=== PATIENT | male | born 1970 | race Caucasian/White ===

== ENCOUNTER → 2020-01-12 10:34 | Outpatient (BNVA) | payer MEDICARE, MEDICAID, SELFPAY | PROVIDERS: PCP Physician Assistant; Referring Provider Physician Assistant; Visit Provider Nurse Practitioner Gerontology | DX: E11.65 Type 2 diabetes mellitus with hyperglycemia (principal); Z79.84 Long term (current) use of oral hypoglycemic drugs; E78.5 Hyperlipidemia, unspecified; I10 Essential (primary) hypertension | CPT/HCPCS: 82947; 99214 ==

== ENCOUNTER 2020-01-20 08:51 | Day surgery (SDC) | payer MEDICARE, MEDICAID, SELFPAY ==
[2020-01-17 13:07] VITALS: BMI 25.8
--- NOTE | 2020-01-19 12:06 | HO.ANESPROP2 ---
HPI - Anesthesia Eval Consult details Narrative: 49yo M for Colonoscopy: screening [facility] Past Medical History Medical History Anemia, iron deficiency Bleeding ulcer Chronic headache Controlled diabetes mellitus with hyperglycemia Depression Elevated cholesterol History of blood transfusion HTN (hypertension) Hx of appendicitis Hyperlipidemia LDL goal <100 Liver problem Pyloric channel ulcer RLS (restless legs syndrome) Upper GI bleed Family History Family History Father No problems noted. Mother Anxiety associated with depression CVD (cardiovascular disease) Surgical History Surgical History History of appendectomy History of esophagogastroduodenoscopy (EGD) Hx of cholecystectomy Hx of esophagogastroduodenoscopy Social History Social History Smoking Status: Never smoker Use of substances other than those prescribed or required for medical reasons: No Advance Directives Information Provided: No Recently lost weight without trying: No Meds Allergies Allergy/AdvReac Type Severity Reaction Status Date / Time Penicillins [PENICILLINS] Allergy Intermediate RASH Verified 01/17/20 13:14 Home Medications Medication Instructions Recorded Confirmed Type lancets 28 gauge #100 ea 01/12/20 01/12/20 History dulaglutide [Trulicity] 1.5 mg SUBCUT QWEEK 01/17/20 01/17/20 History empagliflozin [Jardiance] 1 tab PO DAILY 01/17/20 01/17/20 History gabapentin 2 cap PO BID 01/17/20 01/17/20 History lisinopril 1 tab PO DAILY 01/17/20 01/17/20 History metformin 1 tab PO BID 01/17/20 01/17/20 History pentoxifylline 1 tab PO BID 01/17/20 01/17/20 History quetiapine 1 tab PO BID 01/17/20 01/17/20 History sertraline [Zoloft] 150 mg PO DAILY 01/17/20 01/17/20 History simvastatin 1 tab PO BEDTIME 01/17/20 01/17/20 History zolpidem 1 tab PO BEDTIME PRN 01/17/20 01/17/20 History Exam Exam Date and Time: January 19, 2020 1206 Height,Weight and Vital Signs: Height 5 ft 6 in Weight 72.575 kg Pertinent Lab Results Pertinent Lab Results: Laboratory Tests 10/25/19 10/25/19 10:30 10:30 WBC 6.1 Hgb 14.6 Hct 42.5 Plt Count 167 Sodium 140 Potassium 4.5 Chloride 104 BUN 13 Creatinine 1.01 Assessment and Plan Assessment Anesthesia Assessment: Chart Reviewed
[2020-01-20 09:06] VITALS: BP 108/79; PULSE 99; RESP 18; TEMP 35.7; O2SAT 96
--- NOTE | 2020-01-20 09:08 | MHC.SHP ---
Pre-Procedural Eval Section B Chief Complaint: Screening Relevant Family History (Specify if Yes): No Relevant Social History: None Present Medications: see Short Stay Collaborative assessment Medical History: Significant History ([place], HLP, HTN, DM, ) History of Previous Operations: No relevant previous surgery Allergies: Allergies Allergy/AdvReac Type Severity Reaction Status Date / Time Penicillins [PENICILLINS] Allergy Intermediate RASH Verified 01/17/20 13:14 Review of Systems Sugical H&P ROS: Negative: Constitution, Cardiovascular, Respiratory, Neurological, Psychiatric, Hem-Onc, Allergic/Immunologic, Gastrointestinal, Genitourinary, Musculoskeletal, Integumentary, Endocrine and Eyes/Ears/Nose/Throat Exam Surgical H&P Exam: Normal: HEENT, Normal: Heart, Normal: Lungs, Normal: Extremities, Normal: Abdomen, Normal: Skin and Normal: Neurological Plan Diagnosis/Plan: Unchanged Patient has been examined and remains a candidate for the planned procedure
--- NOTE | 2020-01-20 09:09 | PM.OP ---
Brief Operative Note Date of procedure: 01/20/20 Pre-op diagnosis: colon screen Post-op diagnosis: same Procedure: see op note--colonoscopy Surgeon: Nato Landrum MD Anesthesia: MAC Estimated blood loss (mL): 0 Condition: stable Disposition: PACU
--- NOTE | 2020-01-20 09:09 | W.PM.OPN ---
Operative Note Operative Note Narrative: Operative Information Procedure Description: Colonoscopy COLONOSCOPY Instrument: Olympus variable stiffness pediatric scope 190L Colonoscopy Monitoring: Vital signs and clinical assessment, continuous EKG monitoring, Pulse oximetry, Carbon Dioxide monitoring and blood pressure monitoring were done throughout the procedure. Colon withdrawal time was 11 minutes. Procedure: The patient was placed in the left lateral decubitis position and pre-procedure medications were administered. After a digital rectal examination of the ano-rectum, the video colonoscope was inserted into the rectum and advanced through the colon to the cecum/TI. The colonoscope was slowly withdrawn in a retrograde panoramic fashion and the colon mucosa was carefully examined including a retroflexed view of the rectum. Findings and interventions are described below. Procedure Difficulty: difficult due to tortuous colon Findings: Terminal Ileum-normal Cecum:normal Ascending Colon: normal Transverse Colon -normal Descending Colon:normal Sigmoid Colon: normal Rectum: Retroflexion with moderate sized internal hemorrhoids, grade I Anorectum - normal Colon preparation: [place] Bowel Preparation Scale Right colon; 3 Transverse colon: 3 Left colon; 1 (0 = Unprepared colon segment with mucosa not seen due to solid stool that cannot be cleared. 1 = Portion of mucosa of the colon segment seen, but other areas of the colon segment not well seen due to staining, residual stool and/or opaque liquid. 2 = Minor amount of residual staining, small fragments of stool and/or opaque liquid, but mucosa of colon segment seen well. 3 = Entire mucosa of colon segment seen well with no residual staining, small fragments of stool or opaque liquid) Impression and Post Procedure Diagnosis: internal hemorrhoids Plan: High fiber diet leaflet Avoid straining at stool, epsom salts and sitz bath, anusol supps or cream Repeat Colonoscopy in 5 years due to prep or earlier if clinically indicated Above findings were reviewed with the patient and relevant handouts were provided if indicated.
[2020-01-20 09:12] LABS: Glucose, Whole Blood 97 mg/dL (60-115)
[2020-01-20] MEDS: Lactated Ringers 1,000 ML 100 ML IVCONT (09:20)
[2020-01-20 10:47] VITALS: BP 103/71; PULSE 95; RESP 19; TEMP 36.6; O2SAT 95
[2020-01-20 11:02] VITALS: BP 109/68; PULSE 88; RESP 18; TEMP 36.6; O2SAT 95
[2020-01-20] MEDS: Acetaminophen 325 MG TABLET 650 MG PO (11:10)
[2020-01-20] MEDS: Erythromycin Base 0.5% Oph Oin 1 GM TUBE 1 CM EYE-LEFT ×2 (11:21→11:38)
--- NOTE | 2020-01-20 12:09 | HO.POSTANES ---
Post Anesthesia Evaluation Post Anesthesia Evaluation Vital Signs: Vital Signs Temp Pulse Resp BP Pulse Ox 01/20/20 11:02 97.9 F 88 18 109/68 95 01/20/20 10:47 97.9 F 95 19 103/71 95 01/20/20 09:06 96.2 F L 99 18 108/79 96 Anesthesia: Monitored Mental Status: Awake Pain Control: Satisfactory Nausea/Vomiting: None Hydration: Adequate Anesthesia-Related Issues: No Anes. Related Issues
== END 2020-01-20 12:30 | disposition home or self-care (01) ==
PROVIDERS: Internal Medicine Gastroenterology; PCP Physician Assistant; Visit Provider Anesthesiology
PROC: 0DJD8ZZ Inspection of Lower Intestinal Tract, Via Natural or Artificial Opening Endoscopic (ICD-10-PCS; CPT 45378; principal; 2020-01-20 09:50)
DX: Z12.11 Encounter for screening for malignant neoplasm of colon (principal); K64.0 First degree hemorrhoids; D50.9 Iron deficiency anemia, unspecified; I10 Essential (primary) hypertension; E11.65 Type 2 diabetes mellitus with hyperglycemia; E78.5 Hyperlipidemia, unspecified; K75.81 Nonalcoholic steatohepatitis (NASH); Z79.84 Long term (current) use of oral hypoglycemic drugs; Z79.899 Other long term (current) drug therapy; Z87.11 Personal history of peptic ulcer disease; Z90.49 Acquired absence of other specified parts of digestive tract; Z88.0 Allergy status to penicillin
CPT/HCPCS: G0121; 82947

== ENCOUNTER → 2020-01-25 09:56 | Outpatient (BNVA) | payer MEDICARE, MEDICAID, SELFPAY | PROVIDERS: PCP Physician Assistant; Referring Provider Physician Assistant; Visit Provider Dietitian, Registered | DX: Z76.89 Persons encountering health services in other specified circumstances (principal) ==

== ENCOUNTER → 2020-02-08 09:08 | Outpatient (BNVA) | payer MEDICARE, MEDICAID, SELFPAY | PROVIDERS: PCP Physician Assistant; Referring Provider Physician Assistant; Visit Provider Internal Medicine Gastroenterology | DX: K75.81 Nonalcoholic steatohepatitis (NASH) (principal) | CPT/HCPCS: 99211 ==

== ENCOUNTER 2020-02-11 11:12 | Emergency (ER) | payer MEDICARE, MEDICAID, SELFPAY ==
[2020-02-11 11:51] VITALS: BP 120/80; PULSE 97; RESP 16; TEMP 36.2; O2SAT 97; BMI 24.2
--- NOTE | 2020-02-11 12:14 | XR_ITS ---
EXAMINATION: XR HAND/WRIST, RIGHT CLINICAL INFORMATION: Injury COMPARISON: None TECHNIQUE: Four views of the right hand/wrist FINDINGS: No fracture or dislocation. Alignment is anatomic. Joint spaces are maintained. The carpal rows are well aligned. The soft tissues are unremarkable. XR/XR hand wrist RT IMPRESSION: No fracture or malalignment.
--- NOTE | 2020-02-11 12:15 | ED.EXTPRO ---
HPI - Extremity Problem General Chief complaint: Extremity Injury, Upper Stated complaint: R HAND INJ Time Seen by Provider: 02/11/20 12:14 History of Present Illness HPI Narrative: Patient complains of injury to the right hand after he ate his desk and now right hand and right wrist hurt There is no laceration, there is no numbness or weakness, there is no other injury This happened 2 hours ago and pain is mild Related Data Home Medications Medication Instructions Recorded Confirmed lancets 28 gauge #100 ea 01/12/20 01/12/20 dulaglutide [Trulicity] 1.5 mg SUBCUT QWEEK 01/17/20 01/17/20 empagliflozin [Jardiance] 1 tab PO DAILY 01/17/20 01/17/20 gabapentin 2 cap PO BID 01/17/20 01/17/20 lisinopril 1 tab PO DAILY 01/17/20 01/17/20 metformin 1 tab PO BID 01/17/20 01/17/20 pentoxifylline 1 tab PO BID 01/17/20 01/17/20 quetiapine 1 tab PO BID 01/17/20 01/17/20 sertraline [Zoloft] 150 mg PO DAILY 01/17/20 01/17/20 simvastatin 1 tab PO BEDTIME 01/17/20 01/17/20 zolpidem 1 tab PO BEDTIME PRN 01/17/20 01/17/20 Previous Rx's Medication Instructions Recorded blood sugar diagnostic #150 ea 01/05/20 Allergies Allergy/AdvReac Type Severity Reaction Status Date / Time Penicillins [PENICILLINS] Allergy Intermediate RASH Verified 01/17/20 13:14 Review of Systems Review of Systems: No numbness weakness or paresthesias, no laceration no dizziness no weakness, no other injury Yes all other systems are reviewed and are negative PMFSH Past Medical History Source: nursing notes reviewed Medical History Anemia, iron deficiency Bleeding ulcer Chronic headache Controlled diabetes mellitus with hyperglycemia Depression Elevated cholesterol History of blood transfusion HTN (hypertension) Hx of appendicitis Hyperlipidemia LDL goal <100 Liver problem Pyloric channel ulcer RLS (restless legs syndrome) Upper GI bleed Surgical History History of appendectomy History of esophagogastroduodenoscopy (EGD) Hx of cholecystectomy Hx of esophagogastroduodenoscopy Family History Family History Father No problems noted. Mother Anxiety associated with depression CVD (cardiovascular disease) Social History Social History Smoking Status: Never smoker Advance Directives: No Advance Directives Information Provided: Yes Physical Exam Vital Signs: Vital Signs: Last Vital Signs Temp 97.2 F 02/11/20 11:51 Pulse 97 02/11/20 11:51 Resp 16 02/11/20 11:51 BP 120/80 02/11/20 11:51 Pulse Ox 97 02/11/20 11:51 Body Mass Index 24.2 General appearance is comfortable no acute distress A&O x3 Normocephalic atraumatic Neck is supple Respiratory no distress Right hand and wrist exam there is some mild bruising and superficial abrasions over the knuckles of the right hand and there is mild ulnar tenderness of the wrist, there is full range of motion in the wrist and fingers the patient can make a fist and flex and extend at the wrist, there is no swelling at the wrist, there is no laceration, all tendon function is normal on flexion and extension and neurovascular is intact Neuro no focal deficit Course Course Course Narrative: X-ray of right hand and wrist did not reveal any broken bones or acute pathology, patient has full range of motion and is comfortable so was not splinted and he is discharged to follow-up as needed Discharge Plan Discharge Clinical Impression: Contusion of hand, right Qualifiers: Encounter type: initial encounter Qualified Code(s): S60.221A - Contusion of right hand, initial encounter Patient Disposition: Home, Self-Care Additional Instructions: X-RAY WAS NORMAL, NO BROKEN BONE USUALLY VERY IMPROVED IN 2-3 DAYS IF NOT IMPROVING FOLLOW WITH ORTHOPEDIST RETURN ANY CONCERNS DC BY PROVIDER Prescriptions: No Action (DME) FreeStyle Lite Strips Strip See Rx Instructions .ROUTE .MEDSUPPLY Qty: 150 RF: 3 gabapentin 600 mg tablet 2 cap PO BID RF: 0 sertraline [Zoloft] 100 mg Tablet 150 mg PO DAILY RF: 0 quetiapine 200 mg tablet 1 tab PO BID RF: 0 pentoxifylline 400 mg tablet extended release 1 tab PO BID RF: 0 simvastatin 20 mg tablet 1 tab PO BEDTIME RF: 0 metformin 1,000 mg tablet 1 tab PO BID RF: 0 lisinopril 5 mg tablet 1 tab PO DAILY RF: 0 zolpidem 10 mg tablet 1 tab PO BEDTIME PRN (Reason: insomnia) RF: 0 Jardiance 10 mg tablet 1 tab PO DAILY RF: 0 Trulicity 1.5 mg/0.5 mL Pen Injector 1.5 mg SUBCUT QWEEK RF: 0 (DME) lancets 28 gauge misc See Rx Instructions ea topical BID Qty: 100 RF: 0 Referrals: Jd Yun MD [Physician] - 2 days (Right hand injury) Discharge Date/Time: 02/11/20 13:09
--- NOTE | 2020-02-11 12:15 | ED.EXTPRO ---
HPI - Extremity Problem General Chief complaint: Extremity Injury, Upper Stated complaint: R HAND INJ Time Seen by Provider: 02/11/20 12:14 History of Present Illness HPI Narrative: Patient complains of right hand and wrist pain after hitting his desk, no other injury, no laceration no numbness no weakness no paresthesias no other injury This happened a few hours ago and the pain is mild Related Data Home Medications Medication Instructions Recorded Confirmed lancets 28 gauge #100 ea 01/12/20 01/12/20 dulaglutide [Trulicity] 1.5 mg SUBCUT QWEEK 01/17/20 01/17/20 empagliflozin [Jardiance] 1 tab PO DAILY 01/17/20 01/17/20 gabapentin 2 cap PO BID 01/17/20 01/17/20 lisinopril 1 tab PO DAILY 01/17/20 01/17/20 metformin 1 tab PO BID 01/17/20 01/17/20 pentoxifylline 1 tab PO BID 01/17/20 01/17/20 quetiapine 1 tab PO BID 01/17/20 01/17/20 sertraline [Zoloft] 150 mg PO DAILY 01/17/20 01/17/20 simvastatin 1 tab PO BEDTIME 01/17/20 01/17/20 zolpidem 1 tab PO BEDTIME PRN 01/17/20 01/17/20 Previous Rx's Medication Instructions Recorded blood sugar diagnostic #150 ea 01/05/20 Allergies Allergy/AdvReac Type Severity Reaction Status Date / Time Penicillins [PENICILLINS] Allergy Intermediate RASH Verified 02/14/20 11:20 Review of Systems Review of Systems: No head pain, no neck pain, no numbness no weakness no paresthesias no laceration Yes all other systems are reviewed and are negative PMFSH Past Medical History Source: nursing notes reviewed Medical History Anemia, iron deficiency Bleeding ulcer Chronic headache Controlled diabetes mellitus with hyperglycemia Depression Elevated cholesterol History of blood transfusion HTN (hypertension) Hx of appendicitis Hyperlipidemia LDL goal <100 Liver problem Pyloric channel ulcer RLS (restless legs syndrome) Upper GI bleed Surgical History History of appendectomy History of esophagogastroduodenoscopy (EGD) Hx of cholecystectomy Hx of esophagogastroduodenoscopy Family History Family History Father No problems noted. Mother Anxiety associated with depression CVD (cardiovascular disease) Social History Social History Smoking Status: Never smoker Physical Exam Vital Signs: Vital Signs: Last Vital Signs Temp 97.2 F 02/11/20 11:51 Pulse 97 02/11/20 11:51 Resp 16 02/11/20 11:51 BP 120/80 02/11/20 11:51 Pulse Ox 97 02/11/20 11:51 Body Mass Index 24.2 Head is Normocephalic atraumatic General appearance no acute distress comfortable relaxed cooperative A&O x3 Neck is supple No respiratory distress The right hand has small abrasions over the 2nd and 3rd knuckles there is minor swelling over the dorsum of the hand minor ecchymosis there is full range of motion in the fingers, all fingers and in the wrist, there is no tendon deficit there is no motor or sensory deficit, neurovascular is intact Skin no rashes Course Course Course Narrative: X-ray was done in radiology report was negative for fracture, patient is comfortable and is discharged Discharge Plan Discharge Clinical Impression: Contusion of hand, right Patient Disposition: Home, Self-Care Additional Instructions: X-RAY WAS NORMAL, NO BROKEN BONE USUALLY VERY IMPROVED IN 2-3 DAYS IF NOT IMPROVING FOLLOW WITH ORTHOPEDIST RETURN ANY CONCERNS DC BY PROVIDER Prescriptions: No Action (DME) FreeStyle Lite Strips Strip See Rx Instructions .ROUTE .MEDSUPPLY Qty: 150 RF: 3 gabapentin 600 mg tablet 2 cap PO BID RF: 0 sertraline [Zoloft] 100 mg Tablet 150 mg PO DAILY RF: 0 quetiapine 200 mg tablet 1 tab PO BID RF: 0 pentoxifylline 400 mg tablet extended release 1 tab PO BID RF: 0 simvastatin 20 mg tablet 1 tab PO BEDTIME RF: 0 metformin 1,000 mg tablet 1 tab PO BID RF: 0 lisinopril 5 mg tablet 1 tab PO DAILY RF: 0 zolpidem 10 mg tablet 1 tab PO BEDTIME PRN (Reason: insomnia) RF: 0 Jardiance 10 mg tablet 1 tab PO DAILY RF: 0 Trulicity 1.5 mg/0.5 mL Pen Injector 1.5 mg SUBCUT QWEEK RF: 0 (DME) lancets 28 gauge misc See Rx Instructions ea topical BID Qty: 100 RF: 0 Referrals: Jd Yun MD [Physician] - 2 days (Right hand injury) Discharge Date/Time: 02/11/20 13:09
== END 2020-02-11 13:09 | disposition home or self-care (01) ==
PROVIDERS: Emergency Provider Emergency Medicine; PCP Physician Assistant
DX: S60.221A Contusion of right hand, initial encounter (principal); M79.641 Pain in right hand; I10 Essential (primary) hypertension; X58.XXXA Exposure to other specified factors, initial encounter; Y93.9 Activity, unspecified; Y92.9 Unspecified place or not applicable; Y99.9 Unspecified external cause status; Z79.899 Other long term (current) drug therapy
CPT/HCPCS: 73110; 73130; 99282; 99283

== ENCOUNTER 2020-02-28 12:19 | Outpatient (REF) | payer MEDICARE, MEDICAID, SELFPAY ==
--- NOTE | 2020-02-28 12:27 | US_ITS ---
EXAMINATION: US ABDOMEN LIMITED CLINICAL INFORMATION: Nonalcoholic steatohepatitis. CORTES. COMPARISON: None TECHNIQUE: Real-time imaging of the right upper quadrant abdominal viscera. FINDINGS: PANCREAS: Normal. LIVER: There is anechoic left hepatic cyst measuring 1.5 x 1.4 x 1.2 cm. The liver is normal in size. The liver contour is normal. Parenchymal echogenicity is increased. No focal hepatic lesion. There is no intrahepatic biliary duct dilatation seen. GALLBLADDER: Normal. The gallbladder is physiologically distended without evidence of stones, sludge, polyps, wall thickening or pericholecystic fluid. COMMON BILE DUCT: Normal in caliber measuring 0.4 cm in diameter. RIGHT KIDNEY: Normal. No hydronephrosis. No renal calculi or focal parenchymal lesions. The kidney measures 10.0 cm in maximum dimension. FREE FLUID: None. US/US abdomen limited IMPRESSION: Diffuse hepatic steatosis with a small left hepatic cyst. Visualized right kidney, CBD, pancreas and gallbladder appears unremarkable.
== END 2020-02-28 12:20 | disposition home or self-care (01) ==
LOC: HO.US 12:19
PROVIDERS: PCP Physician Assistant; Visit Provider Internal Medicine Gastroenterology
DX: K75.81 Nonalcoholic steatohepatitis (NASH) (principal)
CPT/HCPCS: 76705

== ENCOUNTER → 2020-04-26 10:00 | Outpatient (BNVA) | payer MEDICARE, MEDICAID, SELFPAY | PROVIDERS: PCP Physician Assistant; Visit Provider Dietitian, Registered | DX: Z76.89 Persons encountering health services in other specified circumstances (principal) ==

== ENCOUNTER → 2020-05-01 09:28 | Outpatient (BNVA) | payer MEDICARE, MEDICAID, SELFPAY | PROVIDERS: PCP Physician Assistant; Visit Provider Internal Medicine Gastroenterology | DX: Z13.89 Encounter for screening for other disorder (principal) | CPT/HCPCS: Q3014 ==

== ENCOUNTER 2020-07-25 12:52 | Outpatient (REF) | payer MEDICARE, MEDICAID, SELFPAY ==
[2020-07-25 14:25] LABS: Estimated Average Glucose 117 mg/dL; Hemoglobin A1c % 5.7 %
[2020-07-25 14:33] LABS: Alanine Aminotransferase 20 U/L (0-40); Albumin Level 4.9 g/dL (3.5-5.0); Alkaline Phosphatase 69 U/L (39-117); Anion Gap 15 (12-20); Aspartate Amino Transferase 20 U/L (5-37); Bilirubin Total 0.7 mg/dL (0.0-1.0); Blood Urea Nitrogen 12 mg/dL (9-16); Calcium 9.9 mg/dL (8.4-10.2); Carbon Dioxide 28 mmol/L (22-29); Chloride 103 mmol/L (96-108); Cholesterol 210 mg/dL; Estimated Glomerular Filt Rate > 60; Glucose Fasting 134 mg/dL (60-99); HDL Cholesterol 47 mg/dL; LDL Cholesterol Calculated 147 mg/dl; Potassium 4.5 mmol/L (3.3-5.1); Sodium 141 mmol/L (135-145); Total Protein 7.4 g/dL (6.5-8.0); Triglycerides 81 mg/dL
[2020-07-25 14:57] LABS: Creatinine Urine 64.66 mg/dL; Microalbumin Urine < 5.0 mg/L
[2020-07-26 06:26] LABS: LDL Cholesterol Direct 151 mg/dL (<100)
== END 2020-07-25 12:53 | disposition home or self-care (01) ==
LOC: HO.LAB 12:52
PROVIDERS: PCP Physician Assistant; Visit Provider Nurse Practitioner Gerontology
DX: E11.65 Type 2 diabetes mellitus with hyperglycemia (principal)
CPT/HCPCS: 36415; 80053; 80061; 82043; 83036; 83721

== ENCOUNTER → 2020-07-26 10:02 | Outpatient (BNVA) | payer MEDICARE, MEDICAID, SELFPAY | PROVIDERS: PCP Physician Assistant; Visit Provider Nurse Practitioner Gerontology | DX: Z13.89 Encounter for screening for other disorder (principal) | CPT/HCPCS: Q3014 ==

== ENCOUNTER 2020-08-15 09:50 | Outpatient (REF) | payer MEDICARE, MEDICAID, SELFPAY ==
[2020-08-15 10:44] LABS: MANUAL DIFF FLAG NO
[2020-08-15 10:50] LABS: Basophils Absolute Auto 0.1 X10*3/uL (0.0-0.2); Eosinophils Absolute Auto 0.2 X10*3/uL (0.0-0.4); Eosinophils Percent Auto 4.4 % (0-4); Hematocrit 43.8 % (42-52); Imm Gran Abs Auto 0.01 X10*3/uL (0.00-0.03); Imm Gran Pct Auto 0.2 % (0.0-0.4); Lymphocytes Absolute Auto 1.5 X10*3/uL (1.2-4.9); Lymphocytes Percent Auto 28.3 % (20-40); Mean Corpuscular HGB Conc 34.2 g/dl (31.0-36.0); Mean Corpuscular Volume 84.7 fL (80-98); Mean Platelet Volume 10.7 fL (9.4-12.4); Monocytes Absolute Auto 0.6 X10*3/uL (0.1-1.2); Monocytes Percent Auto 10.5 % (2-11); Neutrophils Absolute Auto 2.9 X10*3/uL (2.0-8.3); Neutrophils Percent Auto 55.6 % (45-73); Platelet Count 174 X10*3/uL (160-400); Red Blood Count 5.17 X10*6/uL (4.60-5.80); Red Cell Distribution Width 12.8 % (11.0-16.0); White Blood Count 5.2 X10*3/uL (4.8-10.8)
[2020-08-15 10:55] LABS: INTERNATIONAL NORM RATIO 1.1 (0.9-1.1); Prothrombin Time 12.8 SEC (10.8-13.0)
[2020-08-15 11:26] LABS: Alanine Aminotransferase 37 U/L (0-40); Albumin Level 4.5 g/dL (3.5-5.0); Alkaline Phosphatase 60 U/L (39-117); Anion Gap 13 (12-20); Aspartate Amino Transferase 30 U/L (5-37); Blood Urea Nitrogen 15 mg/dL (9-16); Calcium 9.7 mg/dL (8.4-10.2); Carbon Dioxide 28 mmol/L (22-29); Chloride 104 mmol/L (96-108); Estimated Glomerular Filt Rate > 60; Glucose Random 160 mg/dL (60-115); Potassium 4.8 mmol/L (3.3-5.1); Sodium 140 mmol/L (135-145)
[2020-08-15 11:41] LABS: Prostate Specific Antigen Scr 0.32 ng/mL (<0.05-4.0)
== END 2020-08-15 09:51 | disposition home or self-care (01) ==
LOC: HO.LAB 09:50
PROVIDERS: PCP Physician Assistant; Visit Provider Internal Medicine Gastroenterology
DX: Z12.5 Encounter for screening for malignant neoplasm of prostate (principal); E88.81 Metabolic syndrome and other insulin resistance; K75.81 Nonalcoholic steatohepatitis (NASH)
CPT/HCPCS: 36415; 80053; 84153; 85025; 85610

== ENCOUNTER → 2020-08-18 09:51 | Outpatient (BNVA) | payer MEDICARE, MEDICAID, SELFPAY | PROVIDERS: PCP Physician Assistant; Visit Provider Internal Medicine Gastroenterology | CPT/HCPCS: Q3014 ==

== ENCOUNTER → 2020-10-25 09:56 | Outpatient (BNVA) | payer MEDICARE, MEDICAID, SELFPAY | PROVIDERS: PCP Physician Assistant; Visit Provider Dietitian, Registered | DX: E11.9 Type 2 diabetes mellitus without complications (principal) | CPT/HCPCS: 97803 ==

== ENCOUNTER → 2020-10-26 09:32 | Outpatient (BNVA) | payer MEDICARE, MEDICAID, SELFPAY | PROVIDERS: PCP Physician Assistant; Visit Provider Nurse Practitioner Gerontology | CPT/HCPCS: Q3014 ==

== ENCOUNTER 2020-10-31 14:17 | Outpatient (REF) | payer MEDICARE, MEDICAID, SELFPAY ==
[2020-10-31 15:09] LABS: Estimated Average Glucose 143 mg/dL; Hemoglobin A1c % 6.6 %
== END 2020-10-31 14:18 | disposition home or self-care (01) ==
LOC: HO.LAB 14:17
PROVIDERS: PCP Physician Assistant; Visit Provider Nurse Practitioner Gerontology
DX: E11.9 Type 2 diabetes mellitus without complications (principal)
CPT/HCPCS: 36415; 83036

== ENCOUNTER → 2020-12-25 08:48 | Outpatient (BNVA) | payer MEDICARE, MEDICAID, SELFPAY | PROVIDERS: PCP Physician Assistant; Visit Provider Internal Medicine Gastroenterology | DX: E88.81 Metabolic syndrome and other insulin resistance (principal); K75.81 Nonalcoholic steatohepatitis (NASH) | CPT/HCPCS: Q3014 ==

== ENCOUNTER 2021-01-23 09:19 | Outpatient (REF) | payer MEDICARE, MEDICAID, SELFPAY ==
--- NOTE | ~2021-01-23 | US_ITS ---
EXAMINATION: US ABDOMEN LIMITED WITH LIVER ELASTOGRAPHY CLINICAL INFORMATION: Metabolic syndrome, CORTES COMPARISON: February 28, 2020 and October 13, 2019 TECHNIQUE: Real-time imaging of the abdominal viscera. Noninvasive ultrasound liver fibrosis assessment is performed using Marylin ElastPQ point quantification shear wave elastography (pSWE) with a C5-2 MHz transducer. Multiple elastography samples are obtained. FINDINGS: PANCREAS: Normal. The visualized pancreatic head and body are normal in appearance. The remainder of the pancreas is obscured from visualization by the overlying bowel gas. LIVER: There is diffuse increased echogenicity seen within the liver. The previously seen cyst within the left lobe of the liver is not as well seen on prior study and appears to measure 8 mm in largest dimension. The right lobe measures 15.1 cm in length. The left lobe measures 9.5 cm in length. Portal flow is hepatopedal Shear wave liver elastography median stiffness is 1.49 m/s (reference: normal median stiffness is 1.3 m/s or less). IQR/median stiffness to assess sampling precision is 0.8 (reference: good quality data set is IQR/median stiffness of 0.15 or less). GALLBLADDER: There is a stone or 1 mm cholesterol polyps present. Wall is not thickened. No pericholecystic fluid is seen. COMMON BILE DUCT: Normal in caliber measuring 0.4 cm in diameter. RIGHT KIDNEY: Normal. No hydronephrosis. No renal calculi or focal parenchymal lesions. The kidney measures 12.1 cm in maximum dimension. FREE FLUID: None. US/US abdomen farah w elastography IMPRESSION: 1. Cholelithiasis versus 1 mm cholesterol polyp within the gallbladder. No evidence of acute cholecystitis. Diffuse increased echogenicity of the liver which may be related to fatty infiltration or hepatocellular disease of other etiology. 2. Liver elastography: Although measurements appear to rule out compensated advanced chronic liver disease, there is statistical variability of the sampling which decreases accuracy. REFERENCE: Society of Radiologists in Ultrasound Liver Stiffness Thresholds (2020): LIVER STIFFNESS THRESHOLDS: *Liver Stiffness equal or less than 1.3 m/s: High probability of being normal. *Liver Stiffness less than 1.7 m/s: In the absence of other known clinical signs, rules out compensated advanced chronic liver disease. *Liver Stiffness 1.7-2.1 m/s: Suggestive of compensated advanced chronic liver disease but need further test for confirmation. *Liver Stiffness over 2.1 m/s: Rules in compensated advanced chronic liver disease. *Liver Stiffness over 2.4 m/s: Suggestive of clinically significant portal hypertension. QUALITY OF DATA SET: *IQR/Median value equal or less than 0.15 implies a quality data set. *IQR/Median value over 0.15 implies a poor quality data set. SIGNIFICANT CHANGE FROM PRIOR EXAM: Significant change if liver stiffness measurement is 10% or greater from prior exam. OTHER CONSIDERATIONS: The stage of liver fibrosis may be overestimated in the setting of acute hepatitis, liver inflammation, elevated liver function tests, hepatic vascular congestion, obstructive cholestasis, non-fasting state, and infiltrative diseases such as amyloidosis and lymphoma. In some patients with NAFLD, the liver stiffness thresholds for compensated advanced chronic liver disease may be lower. In causes other than viral hepatitis and NAFLD, liver stiffness thresholds are not well established.
== END 2021-01-23 09:20 | disposition home or self-care (01) ==
LOC: HO.US 09:19
PROVIDERS: PCP Physician Assistant; Visit Provider Internal Medicine Gastroenterology
DX: E88.81 Metabolic syndrome and other insulin resistance (principal); K75.81 Nonalcoholic steatohepatitis (NASH)
CPT/HCPCS: 76705; 76981

== ENCOUNTER → 2021-03-13 09:52 | Outpatient (BNVA) | payer MEDICARE, MEDICAID, SELFPAY | PROVIDERS: PCP Physician Assistant; Visit Provider Nurse Practitioner Gerontology | DX: E11.9 Type 2 diabetes mellitus without complications (principal); E78.5 Hyperlipidemia, unspecified; I10 Essential (primary) hypertension | CPT/HCPCS: 82947; 83036; 99212 ==

== ENCOUNTER → 2021-04-25 10:00 | Outpatient (BNVA) | payer MEDICARE, MEDICAID, SELFPAY | PROVIDERS: PCP Physician Assistant; Visit Provider Dietitian, Registered | DX: E11.9 Type 2 diabetes mellitus without complications (principal) | CPT/HCPCS: 97803 ==

== ENCOUNTER 2021-06-14 12:40 | Outpatient (REF) | payer MEDICARE, MEDICAID, SELFPAY ==
[2021-06-14 12:58] LABS: MANUAL DIFF FLAG NO
[2021-06-14 13:40] LABS: INTERNATIONAL NORM RATIO 1.2 (0.9-1.1); Prothrombin Time 13.8 SEC (9.9-13.0)
[2021-06-14 13:42] LABS: Basophils Absolute Auto 0.1 X10*3/uL (0.0-0.2); Eosinophils Absolute Auto 0.2 X10*3/uL (0.0-0.4); Eosinophils Percent Auto 3.2 % (0-4); Hematocrit 43.5 % (42.0-52.0); Hemoglobin 15.1 g/dl (14.0-18.0); Imm Gran Abs Auto 0.02 X10*3/uL (0.00-0.03); Imm Gran Pct Auto 0.4 % (0.0-0.4); Lymphocytes Absolute Auto 1.5 X10*3/uL (1.2-4.9); Lymphocytes Percent Auto 30.9 % (20-40); Mean Corpuscular HGB Conc 34.7 g/dl (31.0-36.0); Mean Corpuscular Hemoglobin 29.4 pg (27.0-33.0); Mean Corpuscular Volume 84.8 fL (80.0-98.0); Mean Platelet Volume 11.3 fL (9.4-12.4); Monocytes Absolute Auto 0.6 X10*3/uL (0.1-1.2); Neutrophils Absolute Auto 2.7 x10*3/uL (2.0-8.3); Neutrophils Percent Auto 53.5 % (45-73); Platelet Count 190 X10*3/uL (160-400); Red Blood Count 5.13 X10*6/uL (4.60-5.80); Red Cell Distribution Width 12.6 % (11.0-16.0)
[2021-06-14 14:09] LABS: Alanine Aminotransferase 23 U/L (0-40); Albumin Level 4.8 g/dL (3.5-5.0); Alkaline Phosphatase 59 U/L (39-117); Anion Gap 13 (12-20); Aspartate Amino Transferase 20 U/L (5-37); Bilirubin Total 0.6 mg/dL (0.0-1.0); Blood Urea Nitrogen 9 mg/dL (9-16); Carbon Dioxide 27 mmol/L (22-29); Chloride 104 mmol/L (96-108); Cholesterol 138 mg/dL; Estimated Glomerular Filt Rate > 60; Glucose Fasting 122 mg/dL (60-99); HDL Cholesterol 31 mg/dL; LDL Cholesterol Calculated 96 mg/dl; Potassium 4.1 mmol/L (3.3-5.1); Sodium 140 mmol/L (135-145); Total Protein 7.4 g/dL (6.5-8.0); Triglycerides 57 mg/dL
[2021-06-14 14:22] LABS: Thyroid Stimulating Hormone 0.88 uIU/mL (0.32-4.0); Vitamin D 25-OH Total 30.5 ng/mL (>30)
[2021-06-14 14:24] LABS: Free T4 (Free Thyroxine) 1.12 ng/dL (0.71-1.85)
[2021-06-14 14:40] LABS: Creatinine Urine 186.23 mg/dL; Microalbum/Creatinine Ratio Ur 7.5 ug/mg cr
[2021-06-14 15:08] LABS: Vitamin B12 455 pg/mL (200-900)
[2021-06-15 15:52] LABS: LDL Cholesterol Direct 90 mg/dL (<100)
== END 2021-06-14 12:41 | disposition home or self-care (01) ==
LOC: HO.LAB 12:40
PROVIDERS: Internal Medicine Gastroenterology; PCP Physician Assistant; Visit Provider Nurse Practitioner Gerontology
DX: E88.81 Metabolic syndrome and other insulin resistance (principal); K75.81 Nonalcoholic steatohepatitis (NASH); E11.9 Type 2 diabetes mellitus without complications
CPT/HCPCS: 36415; 80053; 80061; 82043; 82306; 82607; 83721; 84439; 84443; 85025; 85610

== ENCOUNTER → 2021-06-19 09:32 | Outpatient (BNVA) | payer MEDICARE, MEDICAID, SELFPAY | PROVIDERS: PCP Physician Assistant; Visit Provider Nurse Practitioner Gerontology | DX: E11.9 Type 2 diabetes mellitus without complications (principal); E78.5 Hyperlipidemia, unspecified; I10 Essential (primary) hypertension; Z79.84 Long term (current) use of oral hypoglycemic drugs | CPT/HCPCS: 82947; 83036; Q3014 ==

== ENCOUNTER → 2021-07-27 08:29 | Outpatient (BNVA) | payer MEDICARE, MEDICAID, SELFPAY | PROVIDERS: PCP Physician Assistant; Visit Provider Internal Medicine Gastroenterology | DX: Z13.89 Encounter for screening for other disorder (principal) | CPT/HCPCS: Q3014 ==

== ENCOUNTER → 2021-10-24 09:56 | Outpatient (BNVA) | payer MEDICARE, MEDICAID, SELFPAY | PROVIDERS: PCP Physician Assistant; Visit Provider Dietitian, Registered | DX: E11.9 Type 2 diabetes mellitus without complications (principal); Z71.3 Dietary counseling and surveillance | CPT/HCPCS: 97803 ==

== ENCOUNTER 2022-01-22 12:06 | Outpatient (REF) | payer MEDICARE, MEDICAID, SELFPAY ==
[2022-01-22 12:16] LABS: MANUAL DIFF FLAG NO
[2022-01-22 13:35] LABS: Alanine Aminotransferase 22 U/L (0-40); Albumin Level 4.6 g/dL (3.5-5.0); Alkaline Phosphatase 62 U/L (39-117); Anion Gap 17 (12-20); Aspartate Amino Transferase 20 U/L (5-37); Bilirubin Total 0.7 mg/dL (0.0-1.0); Blood Urea Nitrogen 13 mg/dL (9-16); Carbon Dioxide 25 mmol/L (22-29); Chloride 99 mmol/L (96-108); Cholesterol 139 mg/dL; Estimated Glomerular Filt Rate > 60; Glucose Fasting 268 mg/dL (60-99); HDL Cholesterol 39 mg/dL; LDL Cholesterol Calculated 85 mg/dl; Potassium 4.1 mmol/L (3.3-5.1); Sodium 137 mmol/L (135-145); Total Protein 7.1 g/dL (6.5-8.0); Triglycerides 75 mg/dL
[2022-01-22 14:08] LABS: Appearance Urine Clear; Color Urine Yellow; Glucose Urine UA >=1000 mg/dL (Negative); Leukocyte Esterase Urine Negative (Negative); Nitrite Urine Negative (Negative); PH 6.5 (5.0-9.0); Specific Gravity - Urine 1.025 (1.005-1.025); UMIC TRIGGER UACC YES; Urine Blood Negative (Negative); Urine Ketones Negative (Negative); Urine Protein Negative (Neg-Trace)
[2022-01-22 14:13] LABS: Bacteria Urine None Seen (None Seen); Hyaline Casts Urine 0-2 /LPF (0-2); RBC Urine 0-2 /HPF (0-2); Squamous Epithelial Cell Urine 0-2 /HPF (0-2); WBC Urine 0-5 /HPF (0-5)
[2022-01-22 14:30] LABS: Basophils Absolute Auto 0.1 X10*3/uL (0.0-0.2); Basophils Percent Auto 1.1 % (0-2); Eosinophils Absolute Auto 0.2 X10*3/uL (0.0-0.4); Eosinophils Percent Auto 3.7 % (0-4); Hematocrit 46.4 % (42.0-52.0); Hemoglobin 16.4 g/dl (14.0-18.0); Imm Gran Abs Auto 0.03 X10*3/uL (0.00-0.03); Imm Gran Pct Auto 0.5 % (0.0-0.4); Lymphocytes Absolute Auto 1.9 X10*3/uL (1.2-4.9); Lymphocytes Percent Auto 31.2 % (20-40); Mean Corpuscular HGB Conc 35.3 g/dl (31.0-36.0); Mean Corpuscular Hemoglobin 29.8 pg (27.0-33.0); Mean Corpuscular Volume 84.2 fL (80.0-98.0); Mean Platelet Volume 11.4 fL (9.4-12.4); Monocytes Absolute Auto 0.7 X10*3/uL (0.1-1.2); Monocytes Percent Auto 10.7 % (2-11); Neutrophils Absolute Auto 3.3 x10*3/uL (2.0-8.3); Neutrophils Percent Auto 52.8 % (45-73); Platelet Count 181 X10*3/uL (160-400); Red Blood Count 5.51 X10*6/uL (4.60-5.80); Red Cell Distribution Width 12.1 % (11.0-16.0); White Blood Count 6.2 X10*3/uL (4.8-10.8)
== END 2022-01-22 12:07 | disposition home or self-care (01) ==
LOC: HO.LAB 12:06
PROVIDERS: PCP Physician Assistant; Visit Provider Internal Medicine
DX: I10 Essential (primary) hypertension (principal); E78.00 Pure hypercholesterolemia, unspecified
CPT/HCPCS: 36415; 80053; 80061; 81001; 84443; 85025

== ENCOUNTER → 2022-04-24 10:16 | Outpatient (BNVA) | payer MEDICARE, MEDICAID, SELFPAY | PROVIDERS: PCP Physician Assistant; Visit Provider Dietitian, Registered | DX: E11.9 Type 2 diabetes mellitus without complications (principal) | CPT/HCPCS: 97803 ==

== ENCOUNTER 2022-09-07 09:41 | Outpatient (REF) | payer MEDICARE, MEDICAID, SELFPAY ==
[2022-09-07 10:42] LABS: Alanine Aminotransferase 21 U/L (0-40); Albumin Level 4.4 g/dL (3.5-5.0); Alkaline Phosphatase 58 U/L (39-117); Anion Gap 13 (12-20); Aspartate Amino Transferase 20 U/L (5-37); Bilirubin Total 0.4 mg/dL (0.0-1.0); Blood Urea Nitrogen 15 mg/dL (9-16); Calcium 10.7 mg/dL (8.4-10.2); Carbon Dioxide 30 mmol/L (22-29); Chloride 104 mmol/L (96-108); Cholesterol 165 mg/dL; Estimated Glomerular Filt Rate > 60; Glucose Fasting 125 mg/dL (60-99); HDL Cholesterol 35 mg/dL; LDL Cholesterol Calculated 101 mg/dl; Potassium 4.2 mmol/L (3.3-5.1); Sodium 143 mmol/L (135-145); Total Protein 6.9 g/dL (6.5-8.0); Triglycerides 147 mg/dL
[2022-09-07 10:57] LABS: TSH reflex Free T4 2.77 uIU/mL (0.32-4.0)
[2022-09-07 11:36] LABS: Creatinine Urine 114.87 mg/dL
== END 2022-09-07 09:42 | disposition home or self-care (01) ==
LOC: HO.LAB 09:41
PROVIDERS: PCP Physician Assistant; Visit Provider Physician Assistant
DX: E11.65 Type 2 diabetes mellitus with hyperglycemia (principal)
CPT/HCPCS: 36415; 80053; 80061; 82043; 84443

== ENCOUNTER 2023-05-26 15:05 | Outpatient (REF) | payer MEDICARE, MEDICAID, SELFPAY ==
[2023-05-26 15:46] LABS: Hematocrit 46.4 % (42.0-52.0); Hemoglobin 16.3 g/dl (14.0-18.0); Mean Corpuscular HGB Conc 35.1 g/dl (31.0-36.0); Mean Corpuscular Volume 85.3 fL (80.0-98.0); Mean Platelet Volume 10.9 fL (9.4-12.4); Platelet Count 215 X10*3/uL (160-400); Red Blood Count 5.44 X10*6/uL (4.60-5.80); Red Cell Distribution Width 12.7 % (11.0-16.0); White Blood Count 8.4 X10*3/uL (4.8-10.8)
[2023-05-26 16:17] LABS: Alanine Aminotransferase 21 U/L (0-40); Albumin Level 4.8 g/dL (3.5-5.0); Alkaline Phosphatase 62 U/L (39-117); Anion Gap 14 (12-20); Aspartate Amino Transferase 15 U/L (5-37); Bilirubin Total 0.7 mg/dL (0.0-1.0); Blood Urea Nitrogen 11 mg/dL (9-16); Calcium 10.1 mg/dL (8.4-10.2); Carbon Dioxide 28 mmol/L (22-29); Chloride 103 mmol/L (96-108); Estimated Glomerular Filt Rate > 60; Glucose Fasting 183 mg/dL (60-99); Potassium 4.3 mmol/L (3.3-5.1); Sodium 141 mmol/L (135-145); Total Protein 7.8 g/dL (6.5-8.0)
[2023-05-26 16:40] LABS: Prostate Specific Antigen Scr 0.37 ng/mL (<0.05-4.0)
== END 2023-05-26 15:06 | disposition home or self-care (01) ==
LOC: HO.LAB 15:05
PROVIDERS: PCP Physician Assistant; Visit Provider Physician Assistant
DX: Z12.5 Encounter for screening for malignant neoplasm of prostate (principal); E11.65 Type 2 diabetes mellitus with hyperglycemia
CPT/HCPCS: 36415; 80053; 84153; 85027

== ENCOUNTER 2023-05-28 10:49 | Outpatient (AMB) | payer MEDICARE, MEDICAID, SELFPAY ==
[2023-05-28 10:51] VITALS: BP 110/80; PULSE 103; O2SAT 97; BMI 22.3
--- NOTE | 2023-05-28 10:51 | A.OFFPC_ITS ---
Vital Signs 05/28/23 10:51 Height 5 ft 6 in Weight 138 lb 2 oz BMI 22.3 BP 110/80 Blood Pressure Location Lt brachial Position Sitting Pulse 103 H Pulse Source Pulse Oximeter Pulse Oximetry (%) 97 Oxygen Delivery Method Room Air Intake Visit Reasons: DM F/U Chocolate Packer Required: No Accompanied by: Self / Same As Patient Allergies Penicillins [PENICILLINS] Allergy (Intermediate, Verified 05/28/23 11:12) RASH dulaglutide [From Trulicity] Adverse Reaction (Intermediate, Verified 05/28/23 11:14) Nausea empagliflozin [From Jardiance] Adverse Reaction (Intermediate, Verified 05/28/23 11:12) Abdominal Pain Medication List - Last Reconciled 05/28/23 by Eddie Malave PA-C blood sugar diagnostic (FreeStyle Lite Strips) once a day bupropion HCl 150 mg PO QAM buspirone 15 mg PO BID gabapentin 2 caps PO BID lancets (FreeStyle Lancets) 1 gauge topical BID lisinopril 5 mg PO DAILY melatonin 5 mg PO BEDTIME PRN metformin 1,000 mg PO BID 90 days pentoxifylline ER 400 mg PO BID sertraline (Zoloft) 150 mg PO DAILY vitamin E (dl, acetate) 450 mg PO DAILY zolpidem 10 mg PO BEDTIME PRN Tobacco use date assessed: 05/28/23 Dental Screening Dental Screen Date: 05/28/23 Did you have a dental visit in the last 12 months?: Yes Did you have a dental problem in the last 6 months where you did not have access to dental care?: No Was dental information given to patient?: Patient has dentist HPI DM F/U HPI Details Nakul is a 52y/o male with pmhx. DMII, hyperlipidemia, htn, schizoaffective disorder presenting for follow-up visit. ? .. ? DMII:? Patient continues on 1000 mg metformin b.i.d.. Has lost a significant amount of weight since last office visit 15 lb weight loss noted. He does report decreased appetite and attributes this to Trulicity as it does give him GI side effects at times. Thus patient discontinue Trulicity on his own. ? Today's A1c 9.5 from 6.6. PLAN: Will add on Actos 15 mg to his metformin a 1000 b.i.d.. ? . ? Pt. has a history of schizoaffective disorder and sees a psychiatrist every 3 months and therapist every 3 weeks. Continues with wellbutrin, Zoloft, and Ambien with good affect. Has been a recently started on higher dose of is BuSpar 15 mg b.i.d. for his increased anxiety. He does report having a trouble sleeping, he does report zolpidem is helpful though would like something additional to help him sleep ? .. ? HTN: Patient reports blood pressures have been stable, no reports of headaches, chest pain. Laboratory Tests 09/07/22 09/09/22 05/26/23 09:48 15:42 15:16 RBC 5.44 Fasting Glucose 125 H Hgb A1c (Clinic) 6.6 H LDL Cholesterol, C alc 101 PSA Screen 05/26/23 05/28/23 15:16 10:50 RBC Fasting Glucose 183 H Hgb A1c (Clinic) 9.5 H LDL Cholesterol, C alc PSA Screen 0.37 PFSH Medical History Anemia, iron deficiency Bleeding ulcer Chronic headache Depression Diabetes mellitus Elevated cholesterol History of blood transfusion HTN (hypertension) Hx of appendicitis Hyperlipidemia LDL goal <100 Insomnia Liver problem PAD (peripheral artery disease) Pyloric channel ulcer RLS (restless legs syndrome) Upper GI bleed Surgical History Hx of colonoscopy Hx of esophagogastroduodenoscopy History of esophagogastroduodenoscopy (EGD) Hx of cholecystectomy History of appendectomy Family History Father No problems noted. Mother Anxiety associated with depression CVD (cardiovascular disease) Diabetes Mental health disorder Social History Household Members: Family Household Members Other:: parents Housing: Apartment Alcohol intake: current Alcohol intake frequency: does not drink Patient Tobacco Use Status: Never used Tobacco e-Cigarette/Vaping Use: Never Used Second Hand Smoke Exposure: No service: No Current occupational status: unemployed Cognitive needs: No Hearing needs: No Vision needs: Yes (Glasses) Questionnaire PHQ-9 Over the last 2 weeks, how often have you been bothered by any of the following problems? 1. Little interest or pleasure in doing things: nearly every day 2. Feeling down, depressed, or hopeless: more than half the days 3. Trouble falling or staying asleep, or sleeping too much: more than half the days 4. Feeling tired or having little energy: nearly every day 5. Poor appetite or overeating: several days 6. Feeling bad about yourself - or that you are a failure or have let yourself or your family down: more than half the days 7. Trouble concentrating on things, such as reading the newspaper or watching television: nearly every day 8. Moving or speaking so slowly that other people could have noticed. Or the opposite - being so fidgety or restless that you have been moving around a lot more than usual: nearly every day 9. Thoughts that you would be better off or of hurting yourself in some way: not at all Total score: 19 Depression Screening Interpretation: Positive Depression Screening Follow-up: Existing condition and In treatment Depression Screening Done: Yes 99969 - PHQ-9 Billing: Yes Source: Developed by Drs. Alonso Benites, Misa Ramon, Harvinder Cunningham and colleagues, with an educational anil from [employer]. Thrive Questionnaire Date Thrive assessed: 05/28/23 I am a: Patient What is your living situation today?: I have a steady place to live Within the past 12 months, did the food you bought not last and you didn't have the money to get more?: Never true Within the past 12 months, did you worry whether your food would run out before you got money to buy more?: Never true Do you have trouble paying for medicines?: No Do you have trouble getting transportation to medical appointments?: No Do you have trouble paying your heating and electricity bill?: No Do you have trouble taking care of your child, family member or friend?: No Do you have trouble with day-to-day activities such as bathing, preparing meals, shopping, managing finances, etc.?: No Are you currently unemployed and looking for a job?: No Are you interested in more education?: No Please select the resources that you would like help with: None Currently or been in a relationship where the following occur: no concerns reported THRIVE Score: 0 AUDIT C Alcohol Use Questionnaire (AUDIT-C) 1. How often do you have a drink containing alcohol?: Never 3. How often do you have six or more drinks on one occasion?: Never Total Score: 0 JAKE-7 AMB Questionnaire JAKE-7 Date JAKE - 7 assessed: 05/28/23 Feeling nervous, anxious, or on edge: 3 = Nearly every day Not being able to stop or control worryin = More than half the days Worrying too much about different things: 3 = Nearly every day Trouble relaxin = Nearly every day Being so restless that it is hard to sit still: 3 = Nearly every day Becoming easily annoyed or irritable: 3 = Nearly every day Feeling afraid as if something awful might happen: 0 = Not at all Total JAKE-7 score (0-4 normal; 5-9 mild; 10-14 moderate; 15-21 severe): 17 Source: Developed by Drs. Alonso Benites, Misa Ramon, Harvinder Cunningham and colleagues, with an educational anil from [employer]. JAKE-7 Assessment Billing JAKE-7 Assessment Tool: JAKE-7 Assessment 55116 Review of Systems Const Denies headache(s) Eyes Denies loss of vision ENT Denies vertigo, Denies dizziness, Denies headache(s) and Denies sore throat Card Denies chest pain, Denies leg edema and Denies lightheadedness Resp Denies cough, Denies hemoptysis and Denies wheezing GI Denies abdominal pain, Denies melena, Denies constipation, Denies diarrhea and Denies vomiting Denies dysuria, Denies urinary frequency and Denies urinary urgency Musc Denies arthralgias, Denies joint swelling, Denies numbness and Denies tingling Neuro Denies Abnormal speech present, Denies behavioral changes, Denies vertigo, Den ies dizziness, Denies headache(s), Denies loss of vision, Denies memory loss, Denies numbness and Denies tingling Psych Denies anxiety, Denies behavioral changes, Denies depression, Denies memory loss and Denies panic attacks Lior/Lymph Denies easy bleeding and Denies easy bruising Aller/Immun Denies wheezing Physical exam (Primary Care) Vital Signs: Last Vital Signs Pulse 103 H 05/28/23 10:51 BP 110/80 05/28/23 10:51 Pulse Ox 97 05/28/23 10:51 Oxygen Delivery Method Room Air 05/28/23 10:51 BMI result Body Mass Index 22.3 Tobacco/Smoking Status: Tobacco use Status Tobacco use date assessed 05/28/23 05/28/23 10:52 Patient Tobacco Use Status Never used Tobacco 05/28/23 10:52 e-Cigarette/Vaping Use Never Used 05/28/23 10:52 PHQ-9: PHQ-9 Score PHQ-9: Total score 19 05/28/23 11:08 Depression Screening Interpretation: Positive Depression Screening Follow-up: Existing condition and In treatment Thrive Assessment: Date of Thrive Assessment Date Thrive assessed 05/28/23 05/28/23 10:52 Currently or been in a relationship where the following occur: no concerns reported Const General: healthy appearing, no acute distress, alert and awake Nutritional Appearance: well nourished Orientation/consciousness: oriented to person, oriented to place and oriented to time HENMT Ears: TM's normal bilaterally General nose exam: Normal nasal mucous membranes and turbinates present Eyes Conjunctivae: conjunctivae normal Sclerae: sclerae normal Pupils: Equal, round and reactive pupils present Neck Neck: Yes no lymphadenopathy and Yes no JVD Thyroid: Thyroid normal Carotids: no bruits Resp Effort & Inspection: normal respiratory effort and not tachypneic Auscultation: no crackles, no rales, no rhonchi and no wheezes Cardio Rate: regular rate Rhythm: regular rhythm Heart sounds: no murmurs and normal S1 and S2 GI Palpation (GI): Soft to palpation, nontender, no hepatomegaly and no splenomegaly Auscultation: normal bowel sounds Skin General skin exam: no rashes or lesions noted and dry skin Neuro General: oriented to person, oriented to place and oriented to time Cranial nerves: Yes Equal, round and reactive pupils present Speech: No Abnormal speech present Gait exam (Neuro): Normal gait present Motor exam (neuro): no tremor noted Extrem Right upper extremity: full ROM Left upper extremity: full ROM Right lower extremity: full ROM; no edema Left lower extremity: full ROM; no edema Psych Mental Status: mental status grossly normal Speech and movement: Normal speech and movement present Affect: normal affect Attitude: cooperative Thought process: Normal thought process present Results AMB Hemoglobin A1c AMB Hemoglobin A1c 9.5 % Last Edit by EMANUEL Garcia on 05/28/23 11:05 Results Reviewed Results Reviewed: Laboratory Last Values Hgb A1c (Clinic) 9.5 % (4.0-6.0) H 05/28/23 10:50 Assessment and Plan Assessment & Plan (1) Diabetes mellitus: Code(s): E11.9 - Type 2 diabetes mellitus without complications Qualifiers: Diabetes mellitus complication status: with hyperglycemia Diabetes mellitus intermediate project manager insulin use: without intermediate project manager use Diabetes mellitus type: type 2 Qualified Code(s): E11.65 - Type 2 diabetes mellitus with hyperglycemia Plan: Patient's type 2 diabetes suboptimally controlled, he reports he was started feels sick his Trulicity and has stopped this medication. Continues on metformin a 1000 b.i.d.. He reports he has some a phobia about needles and causes him some anxiety and is not interested in any injectable medication. Trulicity was effective on glycemic control for him though unfortunately could not tolerate side effects A1c now above 9. Will add on Actos 15 mg. He does admit to dietary indiscretion will like to work on diabetic diet. Will see him back in 3 months and check A1c. Goal A1c is to be below 7.0 (2) Insomnia: Code(s): G47.00 - Insomnia, unspecified Qualifiers: Insomnia type: unspecified Qualified Code(s): G47.00 - Insomnia, unspecified Plan: Continues to follow psychiatrist whom is managing patient's mental health medication including [place]ien. (3) Essential hypertension: Code(s): I10 - Essential (primary) hypertension Plan: Patient's blood pressure acceptable today in office. Will continue his current dose of antihypertensive medications with goal blood pressure to be below 140/90 (4) Hyperlipidemia LDL goal <100: Code(s): E78.5 - Hyperlipidemia, unspecified Plan: Patient's most recent lipid panel. Will continue his current dose of statin therapy and patient will work on lifestyle modifications to further reduce his LDL below 100 (5) JAKE (generalized anxiety disorder): Code(s): F41.1 - Generalized anxiety disorder Plan: Patient's JAKE-7 score positive for anxiety which has been existing condition for him. He is speaking with a mental health therapist and a psychiatrist who is managing his mental health medication. (6) MDD (major depressive disorder), recurrent episode, moderate: Code(s): F33.1 - Major depressive disorder, recurrent, moderate Plan: Patient's PHQ-9 score positive for major depressive disorder which has been existing condition for him. Again speaking with a mental health therapist and a psychiatrist who more managing his mental health medications. Orders: Orders AMB Hemoglobin A1c 05/28/23 E11.9 - Type 2 diabetes mellitus without complications Medications: New pioglitazone 15 mg PO DAILY 90 days 90 tabs 1RF E11.65 - Type 2 diabetes mellitus with hyperglycemia Refilled lancets (FreeStyle Lancets) 1 gauge topical BID 100 ea 11RF E11.9 - Type 2 diabetes mellitus without complications Coding Level of Care Code Est Pt Level 4 (59192) Diagnoses Type 2 diabetes mellitus with hyperglycemia, without long-term current use of insulin E11.65 Diabetes mellitus complication status: with hyperglycemia Diabetes mellitus intermediate project manager insulin use: without intermediate project manager use Diabetes mellitus type: type 2 Insomnia, unspecified type G47.00 Insomnia type: unspecified Essential hypertension I10 Hyperlipidemia LDL goal <100 E78.5 JAKE (generalized anxiety disorder) F41.1 MDD (major depressive disorder), recurrent episode, moderate F33.1 Additional Codes JAKE-7 Assessment Billing - JAKE-7 Assessment Tool: JAKE-7 Assessment [id number] ([id number])
== END 2023-05-28 11:44 | disposition home or self-care (01) ==
PROVIDERS: PCP Physician Assistant; Visit Provider Physician Assistant
DX: E11.9 Type 2 diabetes mellitus without complications (principal)
CPT/HCPCS: 83036; 99214

== ENCOUNTER 2023-12-08 15:00 | Outpatient (AMB) | payer MEDICARE, MEDICAID, SELFPAY ==
[2023-12-08 15:08] VITALS: BP 108/70; PULSE 111; O2SAT 98; BMI 21.8
--- NOTE | 2023-12-08 15:08 | A.OFFPC_ITS ---
Vital Signs 12/08/23 15:08 Height 5 ft 6 in Weight 135 lb 2 oz BMI 21.8 BP 108/70 Blood Pressure Location Lt brachial Position Sitting Pulse 111 H Pulse Source Pulse Oximeter Pulse Oximetry (%) 98 Oxygen Delivery Method Room Air Intake Visit Reasons: Regular Check Up Intake Note: Pt is here for DMII check up. 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 Accompanied by: Self / Same As Patient Allergies Penicillins [PENICILLINS] Allergy (Intermediate, Verified 12/08/23 15:11) RASH dulaglutide [From Trulicity] Adverse Reaction (Intermediate, Verified 12/08/23 15:11) Nausea empagliflozin [From Jardiance] Adverse Reaction (Intermediate, Verified 12/08/23 15:11) Abdominal Pain Medication List - Last Reconciled 12/08/23 by Eddie Malave PA-C blood sugar diagnostic (FreeStyle Lite Strips) once a day bupropion HCl XL 150 mg PO QAM buspirone 15 mg PO BID gabapentin 2 caps PO BID lancets (FreeStyle Lancets) 1 gauge topical BID lisinopril 5 mg PO DAILY melatonin 5 mg PO BEDTIME PRN metformin 1,000 mg PO BID 90 days pentoxifylline ER 400 mg PO BID pioglitazone 15 mg PO DAILY 90 days sertraline (Zoloft) 150 mg PO DAILY vitamin E (dl, acetate) 450 mg PO DAILY zolpidem 10 mg PO BEDTIME PRN Tobacco use date assessed: 05/28/23 Dental Screening Dental Screen Date: 05/28/23 HPI Regular Check Up HPI Details Nakul is a 53 y/o male with pmhx. DMII, hyperlipidemia, htn, schizoaffective disorder presenting for follow-up visit. ? .. ? DMII:? Patient continues on 1000 mg metformin b.i.d.. Today's A1c much improved at 7.9 from 9.5. Of note was not able to tolerate Trulicity ? PLAN: Will increase his dose of Actos 30 mg for better glycemic control ? .. ? HTN: Patient reports blood pressures have been stable, no reports of headaches, chest pain. Laboratory Tests 09/09/22 05/28/23 15:42 10:50 Hgb A1c (Clinic) 6.6 H 9.5 H PFSH Medical History PAD (peripheral artery disease) Insomnia Diabetes mellitus History of blood transfusion Liver problem Elevated cholesterol HTN (hypertension) RLS (restless legs syndrome) Upper GI bleed Pyloric channel ulcer Bleeding ulcer Hx of appendicitis Anemia, iron deficiency Chronic headache Depression Hyperlipidemia LDL goal <100 Surgical History Hx of colonoscopy Hx of esophagogastroduodenoscopy History of esophagogastroduodenoscopy (EGD) Hx of cholecystectomy History of appendectomy Family History Father No problems noted. Mother Anxiety associated with depression CVD (cardiovascular disease) Diabetes Mental health disorder Social History Household Members: Family Household Members Other:: parents Housing: Apartment Alcohol intake: current Alcohol intake frequency: does not drink Patient Tobacco Use Status: Never used Tobacco e-Cigarette/Vaping Use: Never Used Second Hand Smoke Exposure: No service: No Current occupational status: unemployed Cognitive needs: No Hearing needs: No Vision needs: Yes (Glasses) Questionnaire Thrive Questionnaire Date Thrive assessed: 05/28/23 JAKE-7 AMB Questionnaire JAKE-7 Date JAKE - 7 assessed: 05/28/23 Source: Developed by Drs. Alonso Benites, Misa Ramon, Harvinder Cunningham and colleagues, with an educational anil from [employer]. Review of Systems Const Denies headache(s) Eyes Denies loss of vision ENT Denies vertigo, Denies dizziness, Denies headache(s) and Denies sore throat Card Denies chest pain, Denies leg edema and Denies lightheadedness Resp Denies cough, Denies hemoptysis and Denies wheezing GI Denies abdominal pain, Denies melena, Denies constipation, Denies diarrhea and Denies vomiting Denies dysuria, Denies urinary frequency and Denies urinary urgency Musc Denies arthralgias, Denies joint swelling, Denies numbness and Denies tingling Neuro Denies Abnormal speech present, Denies behavioral changes, Denies vertigo, Denies dizziness, Denies headache(s), Denies loss of vision, Denies memory loss, Denies numbness and Denies tingling Psych Denies anxiety, Denies behavioral changes, Denies depression, Denies memory loss and Denies panic attacks Lior/Lymph Denies easy bleeding and Denies easy bruising Aller/Immun Denies wheezing Physical exam (Primary Care) Vital Signs: Last Vital Signs Pulse 111 H 12/08/23 15:08 BP 108/70 12/08/23 15:08 Pulse Ox 98 12/08/23 15:08 Oxygen Delivery Method Room Air 12/08/23 15:08 BMI result Body Mass Index 21.8 Tobacco/Smoking Status: Tobacco use Status Tobacco use date assessed 05/28/23 12/08/23 15:09 Patient Tobacco Use Status Never used Tobacco 12/08/23 15:09 e-Cigarette/Vaping Use Never Used 12/08/23 15:09 Thrive Assessment: Date of Thrive Assessment Date Thrive assessed 05/28/23 12/08/23 15:09 Const General: healthy appearing, no acute distress, alert and awake Nutritional Appearance: well nourished Orientation/consciousness: oriented to person, oriented to place and oriented to time HENMT Ears: TM's normal bilaterally General nose exam: Normal nasal mucous membranes and turbinates present Eyes Conjunctivae: conjunctivae normal Sclerae: sclerae normal Pupils: Equal, round and reactive pupils present Neck Neck: Yes no lymphadenopathy and Yes no JVD Thyroid: Thyroid normal Carotids: no bruits Resp Effort & Inspection: normal respiratory effort and not tachypneic Auscultation: no crackles, no rales, no rhonchi and no wheezes Cardio Rate: regular rate Rhythm: regular rhythm Heart sounds: no murmurs and normal S1 and S2 GI Palpation (GI): Soft to palpation, nontender, no hepatomegaly and no splenomegaly Auscultation: normal bowel sounds Skin General skin exam: no rashes or lesions noted and dry skin Neuro General: oriented to person, oriented to place and oriented to time Cranial nerves: Yes Equal, round and reactive pupils present Speech: No Abnormal speech present Gait exam (Neuro): Normal gait present Motor exam (neuro): no tremor noted Extrem Right upper extremity: full ROM Left upper extremity: full ROM Right lower extremity: full ROM; no edema Left lower extremity: full ROM; no edema Psych Mental Status: mental status grossly normal Speech and movement: Normal speech and movement present Affect: normal affect Attitude: cooperative Thought process: Normal thought process present Assessment and Plan Assessment & Plan (1) Diabetes mellitus: Code(s): E11.9 - Type 2 diabetes mellitus without complications Qualifiers: Diabetes mellitus type: type 2 Diabetes mellitus fdc insulin use: without intermediate school teacher use Diabetes mellitus complication status: with hyperglycemia Qualified Code(s): E11.65 - Type 2 diabetes mellitus with hyperglycemia Plan: Patient's type 2 diabetes suboptimally controlled, A1c is improved to 7.9 from 9.5. Will increase his dose of Actos to 30 mg better glycemic control. Continues on metformin a 1000 b.i.d.. He does admit to dietary indiscretion will like to work on diabetic diet. Will see him back in 3 months and check A1c. Goal A1c is to be below 7.0 (2) Essential hypertension: Code(s): I10 - Essential (primary) hypertension Plan: Patient's blood pressure acceptable today in office. Will continue his current dose of antihypertensive medications with goal blood pressure to be below 140/90 (3) Hyperlipidemia LDL goal <100: Code(s): E78.5 - Hyperlipidemia, unspecified Plan: Patient's most recent lipid panel. Will continue his current dose of statin therapy and patient will work on lifestyle modifications to further reduce his LDL below 100 Orders: Orders AMB Hemoglobin A1c Today E11.65 - Type 2 diabetes mellitus with hyperglycemia Lipid Panel Today E78.5 - Hyperlipidemia, unspecified Complete Blood Count no Diff Today E11.65 - Type 2 diabetes mellitus with hyperglycemia [place]. Panel Fast Today E11.65 - Type 2 diabetes mellitus with hyperglycemia Microalbumin, Random (w Creat) Today E11.65 - Type 2 diabetes mellitus with hyperglycemia Medications: New 2 pioglitazone (Actos) 30 mg PO DAILY 90 tabs 1RF E11.65 - Type 2 diabetes mellitus with hyperglycemia Discontinued pioglitazone Discontinued Reason: Doctor's Order 15 mg PO DAILY 90 days 90 tabs 1RF E11.65 - Type 2 diabetes mellitus with hyperglycemia Patient Instructions: Goal: A1c to be below 7.0, LDL to remain below 100 Barriers: Adherence to physical activity and healthy eating habits Coding Level of Care Code Est Pt Level 4 (39332) Diagnoses Type 2 diabetes mellitus with hyperglycemia, without long-term current use of insulin E11.65 Diabetes mellitus type: type 2 Diabetes mellitus fdc insulin use: without intermediate school teacher use Diabetes mellitus complication status: with hyperglycemia Essential hypertension I10 Hyperlipidemia LDL goal <100 E78.5
== END 2023-12-08 15:21 | disposition home or self-care (01) ==
PROVIDERS: PCP Physician Assistant; Visit Provider Physician Assistant
DX: E11.65 Type 2 diabetes mellitus with hyperglycemia (principal); I10 Essential (primary) hypertension; E78.5 Hyperlipidemia, unspecified
CPT/HCPCS: 83036; 99214

== ENCOUNTER 2024-03-16 13:45 | Outpatient (REF) | payer MEDICARE, MEDICAID, SELFPAY ==
[2024-03-16 15:00] LABS: Hemoglobin 15.5 g/dl (14.0-18.0); Mean Corpuscular HGB Conc 35.2 g/dl (31.0-36.0); Mean Corpuscular Hemoglobin 30.1 pg (27.0-33.0); Mean Corpuscular Volume 85.4 fL (80.0-98.0); Platelet Count 214 X10*3/uL (160-400); Red Blood Count 5.15 X10*6/uL (4.60-5.80); Red Cell Distribution Width 12.3 % (11.0-16.0); White Blood Count 5.6 X10*3/uL (4.8-10.8)
[2024-03-16 15:36] LABS: Albumin Level 4.6 g/dL (3.5-5.0); Anion Gap 14 (12-20); Aspartate Amino Transferase 23 U/L (5-37); Bilirubin Total 0.5 mg/dL (0.0-1.0); Blood Urea Nitrogen 13 mg/dL (9-16); Calcium 9.7 mg/dL (8.4-10.2); Carbon Dioxide 27 mmol/L (22-29); Chloride 100 mmol/L (96-108); Cholesterol 250 mg/dL (<200); Estimated Glomerular Filt Rate > 60; Glucose Fasting 172 mg/dL (60-99); HDL Cholesterol 50 mg/dL (>40); LDL Cholesterol Calculated 173 mg/dL (<100); Potassium 4.8 mmol/L (3.3-5.1); Sodium 136 mmol/L (135-145); Total Protein 7.3 g/dL (6.5-8.0); Triglycerides 139 mg/dL (<150)
[2024-03-16 15:41] LABS: Creatinine Urine 57.64 mg/dL; Microalbumin Urine < 5.0 mg/L
[2024-03-16 19:26] LABS: Alanine Aminotransferase 20 U/L (0-40); Alkaline Phosphatase 54 U/L (39-117)
== END 2024-03-16 13:46 | disposition home or self-care (01) ==
LOC: HO.LAB 13:45
PROVIDERS: PCP Physician Assistant; Visit Provider Physician Assistant
DX: E11.65 Type 2 diabetes mellitus with hyperglycemia (principal); E78.5 Hyperlipidemia, unspecified
CPT/HCPCS: 36415; 80053; 80061; 82043; 82570; 85027

== ENCOUNTER 2024-06-03 11:01 | Outpatient (AMB) | payer MEDICARE, MEDICAID, SELFPAY ==
--- NOTE | 2024-06-03 11:05 | MHC.PC.OV ---
Vital Signs 06/03/24 11:06 Height 5 ft 6 in Weight 144 lb BMI 23.2 BP 126/88 Blood Pressure Location Lt brachial Position Sitting Pulse 119 H Pulse Source Pulse Oximeter Pulse Oximetry (%) 96 Oxygen Delivery Method Room Air Intake Visit Reasons: labs f/u Elementary Secretary Required: No Accompanied by: Self / Same As Patient Allergies Penicillins [PENICILLINS] Allergy (Intermediate, Verified 06/03/24 11:18) RASH dulaglutide [From Trulicity] Adverse Reaction (Intermediate, Verified 06/03/24 11:18) Nausea empagliflozin [From Jardiance] Adverse Reaction (Intermediate, Verified 06/03/24 11:18) Abdominal Pain Medication List - Last Reconciled 06/03/24 by Eddie Malave PA-C atorvastatin 20 mg PO DAILY 90 days blood sugar diagnostic (FreeStyle Lite Strips) once a day bupropion HCl XL 150 mg PO QAM buspirone 15 mg PO BID gabapentin 2 caps PO BID lancets (FreeStyle Lancets) 1 gauge topical BID lisinopril 5 mg PO DAILY melatonin 5 mg PO BEDTIME PRN metformin 1,000 mg PO BID 90 days pentoxifylline ER 400 mg PO BID pioglitazone (Actos) 30 mg PO DAILY sertraline (Zoloft) 150 mg PO DAILY vitamin E (dl, acetate) 450 mg PO DAILY zolpidem 10 mg PO BEDTIME PRN Tobacco use date assessed: 06/03/24 Dental Screening Dental Screen Date: 06/03/24 Did you have a dental visit in the last 12 months?: No Did you have a dental problem in the last 6 months where you did not have access to dental care?: No Was dental information given to patient?: Patient declined HPI labs f/u HPI Details Nakul is a 53 y/o male with pmhx. DMII, hyperlipidemia, htn, schizoaffective disorder presenting for follow-up visit. ? .. ? DMII:? Patient continues on 1000 mg metformin b.i.d.. . Of note was not able to tolerate Trulicity ? PLAN: Will increase his dose of Actos 30 mg for better glycemic control ? .. ? HTN: Patient reports blood pressures have been stable, no reports of headaches, chest pain. [facility] Medical History PAD (peripheral artery disease) Insomnia Diabetes mellitus History of blood transfusion Liver problem Elevated cholesterol HTN (hypertension) RLS (restless legs syndrome) Upper GI bleed Pyloric channel ulcer Bleeding ulcer Hx of appendicitis Anemia, iron deficiency Chronic headache Depression Hyperlipidemia LDL goal <100 Surgical History Hx of colonoscopy Hx of esophagogastroduodenoscopy History of esophagogastroduodenoscopy (EGD) Hx of cholecystectomy History of appendectomy Family History Father No problems noted. Mother Anxiety associated with depression CVD (cardiovascular disease) Diabetes Mental health disorder Social History Household Members: Family Household Members Other:: parents Housing: Apartment Alcohol intake: current Alcohol intake frequency: does not drink Patient Tobacco Use Status: Never used Tobacco e-Cigarette/Vaping Use: Never Used Second Hand Smoke Exposure: No service: No Current occupational status: unemployed Cognitive needs: No Hearing needs: No Vision needs: Yes (Glasses) Questionnaire PHQ-9 Over the last 2 weeks, how often have you been bothered by any of the following problems? 1. Little interest or pleasure in doing things: several days 2. Feeling down, depressed, or hopeless: not at all 3. Trouble falling or staying asleep, or sleeping too much: several days 4. Feeling tired or having little energy: more than half the days 5. Poor appetite or overeating: not at all 6. Feeling bad about yourself - or that you are a failure or have let yourself or your family down: not at all 7. Trouble concentrating on things, such as reading the newspaper or watching television: several days 8. Moving or speaking so slowly that other people could have noticed. Or the opposite - being so fidgety or restless that you have been moving around a lot more than usual: not at all 9. Thoughts that you would be better off or of hurting yourself in some way: not at all Total score: 5 Depression Screening Interpretation: Positive Depression Screening Done: Yes Source: Developed by Héctor Morfinet B.W. Tristen, Harvinder Cunningham and colleagues, with an educational anil from [employer]. Thrive Questionnaire Date Thrive assessed: 06/03/24 I am a: Patient What is your living situation today?: I have a steady place to live Within the past 12 months, did the food you bought not last and you didn't have the money to get more?: Never true Within the past 12 months, did you worry whether your food would run out before you got money to buy more?: Never true Do you have trouble paying for medicines?: No Do you have trouble getting transportation to medical appointments?: No Do you have trouble paying your heating and electricity bill?: No Do you have trouble taking care of your child, family member or friend?: No Do you have trouble with day-to-day activities such as bathing, preparing meals, shopping, managing finances, etc.?: No Are you currently unemployed and looking for a job?: No Are you interested in more education?: No Please select the resources that you would like help with: None Currently or been in a relationship where the following occur: No concerns reported THRIVE Score: 0 AUDIT C Alcohol Use Questionnaire (AUDIT-C) 1. How often do you have a drink containing alcohol?: Never Total Score: 0 JAKE-7 AMB Questionnaire JAKE-7 Date JAKE - 7 assessed: 06/03/24 Feeling nervous, anxious, or on edge: 1 = Several days Not being able to stop or control worryin = Not at all Worrying too much about different things: 1 = Several days Trouble relaxin = Not at all Being so restless that it is hard to sit still: 0 = Not at all Becoming easily annoyed or irritable: 0 = Not at all Feeling afraid as if something awful might happen: 0 = Not at all Total JAKE-7 score (0-4 normal; 5-9 mild; 10-14 moderate; 15-21 severe): 2 Source: Developed by Drs. Alonso Benites, Misa Ramon, Harvinder Cunningham and colleagues, with an educational anil from [employer]. Review of Systems Const Denies headache(s) Eyes Denies loss of vision ENT Denies vertigo, Denies dizziness, Denies headache(s) and Denies sore throat Card Denies chest pain, Denies leg edema and Denies lightheadedness Resp Denies cough, Denies hemoptysis and Denies wheezing GI Denies abdominal pain, Denies melena, Denies constipation, Denies diarrhea and Denies vomiting Denies dysuria, Denies urinary frequency and Denies urinary urgency Musc Denies arthralgias, Denies joint swelling, Denies numbness and Denies tingling Neuro Denies Abnormal speech present, Denies behavioral changes, Denies vertigo, Denies dizziness, Denies headache(s), Denies loss of vision, Denies memory loss, Denies numbness and Denies tingling Psych Denies anxiety, Denies behavioral changes, Denies depression, Denies memory loss and Denies panic attacks Lior/Lymph Denies easy bleeding and Denies easy bruising Aller/Immun Denies wheezing Physical exam (Primary Care) Vital Signs: Last Vital Signs Pulse 119 H 06/03/24 11:06 BP 126/88 06/03/24 11:06 Pulse Ox 96 06/03/24 11:06 Oxygen Delivery Method Room Air 06/03/24 11:06 BMI result Body Mass Index 23.2 Tobacco/Smoking Status: Tobacco use Status Tobacco use date assessed 06/03/24 06/03/24 11:15 Patient Tobacco Use Status Never used Tobacco 06/03/24 11:15 e-Cigarette/Vaping Use Never Used 06/03/24 11:15 PHQ-9: PHQ-9 Score PHQ-9: Total score 5 06/03/24 11:15 Depression Screening Interpretation: Positive Thrive Assessment: Date of Thrive Assessment Date Thrive assessed 06/03/24 06/03/24 11:15 Currently or been in a relationship where the following occur: No concerns reported Const General: healthy appearing, no acute distress, alert and awake Nutritional Appearance: well nourished Orientation/consciousness: oriented to person, oriented to place and oriented to time HENMT Ears: TM's normal bilaterally General nose exam: Normal nasal mucous membranes and turbinates present Eyes Conjunctivae: conjunctivae normal Sclerae: sclerae normal Pupils: Equal, round and reactive pupils present Neck Neck: Yes no lymphadenopathy and Yes no JVD Thyroid: Thyroid normal Carotids: no bruits Resp Effort & Inspection: normal respiratory effort and not tachypneic Auscultation: no crackles, no rales, no rhonchi and no wheezes Cardio Rate: regular rate Rhythm: regular rhythm Heart sounds: no murmurs and normal S1 and S2 GI Palpation (GI): Soft to palpation, nontender, no hepatomegaly and no splenomegaly Auscultation: normal bowel sounds Skin General skin exam: no rashes or lesions noted and dry skin Neuro General: oriented to person, oriented to place and oriented to time Cranial nerves: Yes Equal, round and reactive pupils present Speech: No Abnormal speech present Gait exam (Neuro): Normal gait present Motor exam (neuro): no tremor noted Extrem Right upper extremity: full ROM Left upper extremity: full ROM Right lower extremity: full ROM; no edema Left lower extremity: full ROM; no edema Psych Mental Status: mental status grossly normal Speech and movement: Normal speech and movement present Affect: normal affect Attitude: cooperative Thought process: Normal thought process present Results AMB Hemoglobin A1c AMB Hemoglobin A1c 9.2 % Last Edit by MC Ma on 06/03/24 11:17 Results Reviewed Results Reviewed: Laboratory Last Values Hgb A1c (Clinic) 9.2 % (4.0-6.0) H 06/03/24 11:05 Coding Diagnoses Type 2 diabetes mellitus with hyperglycemia, without long-term current use of insulin E11.65 Diabetes mellitus type: type 2 Diabetes mellitus intermediate insulin use: without water inspector use Diabetes mellitus complication status: with hyperglycemia MDD (major depressive disorder), recurrent episode, moderate F33.1 Hyperlipidemia LDL goal <100 E78.5 Essential hypertension I10 Left shoulder tendinitis M77.8 Assessment & Plan Assessment & Plan (1) Diabetes mellitus: Code(s): E11.9 - Type 2 diabetes mellitus without complications Category: Medical Qualifiers: Diabetes mellitus type: type 2 Diabetes mellitus intermediate insulin use: without water inspector use Diabetes mellitus complication status: with hyperglycemia Qualified Code(s): E11.65 - Type 2 diabetes mellitus with hyperglycemia (2) MDD (major depressive disorder), recurrent episode, moderate: Code(s): F33.1 - Major depressive disorder, recurrent, moderate Category: Medical (3) Hyperlipidemia LDL goal <100: Code(s): E78.5 - Hyperlipidemia, unspecified Category: Medical (4) Essential hypertension: Code(s): I10 - Essential (primary) hypertension Category: Medical (5) Left shoulder tendinitis: Code(s): M77.8 - Other enthesopathies, not elsewhere classified Category: Medical Orders: Orders XR shoulder LT min 2V Today M77.8 - Other enthesopathies, not elsewhere classified Comprehensive Imperial. Panel Fast Today E11.65 - Type 2 diabetes mellitus with hyperglycemia Complete Blood Count no Diff Today E11.65 - Type 2 diabetes mellitus with hyperglycemia AMB Hemoglobin A1c Today E11.65 - Type 2 diabetes mellitus with hyperglycemia Microalbumin, Random (w Creat) Today E11.65 - Type 2 diabetes mellitus with hyperglycemia Lipid Panel Today E78.5 - Hyperlipidemia, unspecified Prostate Specific Antigen Scr Today E78.5 - Hyperlipidemia, unspecified, Z12.5 - Encounter for screening for malignant neoplasm of prostate Medications: New dulaglutide (Trulicity) 0.75 mg (0.5 mL) subcut QWEEK 4 weeks 2 mL 1RF E11.65 - Type 2 diabetes mellitus with hyperglycemia Refilled lisinopril 5 mg PO DAILY 90 tabs 1RF I10 - Essential (primary) hypertension atorvastatin 20 mg PO DAILY 90 days 90 tabs 1RF E78.5 - Hyperlipidemia, unspecified
[2024-06-03 11:06] VITALS: BP 126/88; PULSE 119; O2SAT 96; BMI 23.2
== END 2024-06-03 11:37 | disposition home or self-care (01) ==
PROVIDERS: PCP Physician Assistant; Visit Provider Physician Assistant
DX: E11.65 Type 2 diabetes mellitus with hyperglycemia (principal)

== ENCOUNTER → 2024-06-03 11:01 | Outpatient (BNVA) | payer MEDICARE, MEDICAID, SELFPAY | PROVIDERS: PCP Physician Assistant; Visit Provider Physician Assistant | DX: E11.65 Type 2 diabetes mellitus with hyperglycemia (principal); E78.5 Hyperlipidemia, unspecified; F33.1 Major depressive disorder, recurrent, moderate; I10 Essential (primary) hypertension; M77.8 Other enthesopathies, not elsewhere classified | CPT/HCPCS: 83036; 96127; 99212 ==

== ENCOUNTER 2024-09-06 13:57 | Outpatient (AMB) | payer MEDICARE, MEDICAID, SELFPAY ==
[2024-09-06 14:13] VITALS: BP 106/80; PULSE 98; TEMP 36.2; O2SAT 97; BMI 22.9
--- NOTE | 2024-09-06 14:13 | MHC.PC.OV ---
Vital Signs 09/06/24 14:13 Height 5 ft 6 in Weight 142 lb 2 oz BMI 22.9 BP 106/80 Blood Pressure Location Lt brachial Position Sitting Pulse 98 Pulse Source Pulse Oximeter Temp 97.1 F Temp Source Temporal Artery Scan Pulse Oximetry (%) 97 Oxygen Delivery Method Room Air Intake Visit Reasons: f/u DMII Photogravure Press Operator Required: No Accompanied by: Self / Same As Patient Allergies Penicillins [PENICILLINS] Allergy (Intermediate, Verified 09/06/24 14:30) RASH dulaglutide [From Trulicity] Adverse Reaction (Intermediate, Verified 09/06/24 14:30) Nausea empagliflozin [From Jardiance] Adverse Reaction (Intermediate, Verified 09/06/24 14:30) Abdominal Pain Medication List - Last Reconciled 09/06/24 by Eddie Malave PA-C atorvastatin 20 mg PO DAILY 90 days blood sugar diagnostic (FreeStyle Lite Strips) once a day bupropion HCl SR 100 mg PO BID buspirone 30 mg PO BID gabapentin 2 caps PO BID hydroxyzine pamoate 25 mg PO BID lancets (FreeStyle Lancets) 1 gauge topical BID lisinopril 5 mg PO DAILY melatonin 5 mg PO BEDTIME PRN metformin 1,000 mg PO BID 90 days pioglitazone (Actos) 30 mg PO DAILY zolpidem 10 mg PO BEDTIME PRN Tobacco use date assessed: 09/06/24 Dental Screening Dental Screen Date: 09/06/24 Did you have a dental visit in the last 12 months?: No Did you have a dental problem in the last 6 months where you did not have access to dental care?: No Was dental information given to patient?: No HPI f/u DMII HPI Details Nakul is a 54 y/o male with pmhx. DMII, hyperlipidemia, htn, schizoaffective disorder presenting for follow-up visit. FORTUNATELY DID NOT GET FASTING LABS PRIOR TO TODAY'S APPOINTMENT. CONCERN--> he reports over last 2 months having dry itchy throat, eyes and face. Has intermittently been using [id number] allergy medication. ? .. ? DMII:? Patient continues on 1000 mg metformin b.i.d in Actos 30 mg.. . Of note was not able to tolerate Trulicity due to fear of needles. He has just not been able to tolerate using a needle. PLAN: Will increase his dose of Actos to 45 mg for better glycemic control ? .. ? HTN: Patient reports blood pressures have been stable, no reports of headaches, chest pain. [facility] Medical History PAD (peripheral artery disease) Insomnia Diabetes mellitus History of blood transfusion Liver problem Elevated cholesterol HTN (hypertension) RLS (restless legs syndrome) Upper GI bleed Pyloric channel ulcer Bleeding ulcer Hx of appendicitis Anemia, iron deficiency Chronic headache Depression Hyperlipidemia LDL goal <100 Surgical History Hx of colonoscopy Hx of esophagogastroduodenoscopy History of esophagogastroduodenoscopy (EGD) Hx of cholecystectomy History of appendectomy Family History Father No problems noted. Mother Anxiety associated with depression CVD (cardiovascular disease) Diabetes Mental health disorder Social History Household Members: Family Household Members Other:: parents Housing: Apartment Alcohol intake: current Alcohol intake frequency: does not drink Patient Tobacco Use Status: Never used Tobacco e-Cigarette/Vaping Use: Never Used Second Hand Smoke Exposure: No service: No Current occupational status: unemployed Cognitive needs: No Hearing needs: No Vision needs: Yes (Glasses) Questionnaire PHQ-9 Over the last 2 weeks, how often have you been bothered by any of the following problems? 1. Little interest or pleasure in doing things: several days 2. Feeling down, depressed, or hopeless: several days 3. Trouble falling or staying asleep, or sleeping too much: several days 4. Feeling tired or having little energy: several days 5. Poor appetite or overeating: not at all 6. Feeling bad about yourself - or that you are a failure or have let yourself or your family down: several days 7. Trouble concentrating on things, such as reading the newspaper or watching television: several days 8. Moving or speaking so slowly that other people could have noticed. Or the opposite - being so fidgety or restless that you have been moving around a lot more than usual: several days 9. Thoughts that you would be better off or of hurting yourself in some way: not at all Total score: 7 Depression Screening Interpretation: Positive Depression Screening Follow-up: Existing condition and In treatment Depression Screening Done: Yes 50185 - PHQ-9 Billing: Yes Source: Developed by Drs. Alonso Benites, Misa Ramon, Harvinder Cunningham and colleagues, with an educational anil from [employer]. Thrive Questionnaire Date Thrive assessed: 09/06/24 I am a: Patient What is your living situation today?: I have a steady place to live Within the past 12 months, did the food you bought not last and you didn't have the money to get more?: Sometimes True Within the past 12 months, did you worry whether your food would run out before you got money to buy more?: Sometimes True Do you have trouble paying for medicines?: No Do you have trouble getting transportation to medical appointments?: No Do you have trouble paying your heating and electricity bill?: No Do you have trouble taking care of your child, family member or friend?: No Do you have trouble with day-to-day activities such as bathing, preparing meals, shopping, managing finances, etc.?: No Are you currently unemployed and looking for a job?: I choose not to answer this question Are you interested in more education?: I choose not to answer this question Please select the resources that you would like help with: None Currently or been in a relationship where the following occur: I choose not to answer THRIVE Score: 2 AUDIT C Alcohol Use Questionnaire (AUDIT-C) 1. How often do you have a drink containing alcohol?: Never 3. How often do you have six or more drinks on one occasion?: Never Total Score: 0 Score Reviewed/Action Taken: No JAKE-7 AMB Questionnaire JAKE-7 Date JAKE - 7 assessed: 09/06/24 Feeling nervous, anxious, or on edge: 2 = More than half the days Not being able to stop or control worryin = Several days Worrying too much about different things: 1 = Several days Trouble relaxin = Several days Being so restless that it is hard to sit still: 1 = Several days Becoming easily annoyed or irritable: 1 = Several days Feeling afraid as if something awful might happen: 0 = Not at all Total JAKE-7 score (0-4 normal; 5-9 mild; 10-14 moderate; 15-21 severe): 7 Source: Developed by Drs. Alonso Benites, Misa Ramon, Harvinder Cunningham and colleagues, with an educational anil from [employer]. JAKE-7 Assessment Billing JAKE-7 Assessment Tool: JKAE-7 Assessment 44682 Review of Systems Const Denies headache(s) Eyes Denies loss of vision ENT Denies vertigo, Denies dizziness, Denies headache(s) and Denies sore throat Card Denies chest pain, Denies leg edema and Denies lightheadedness Resp Denies cough, Denies hemoptysis and Denies wheezing GI Denies abdominal pain, Denies melena, Denies constipation, Denies diarrhea and Denies vomiting Denies dysuria, Denies urinary frequency and Denies urinary urgency Musc Denies arthralgias, Denies joint swelling, Denies numbness and Denies tingling Neuro Denies Abnormal speech present, Denies behavioral changes, Denies vertigo, Denies dizziness, Denies headache(s), Denies loss of vision, Denies memory loss, Denies numbness and Denies tingling Psych Denies anxiety, Denies behavioral changes, Denies depression, Denies memory loss and Denies panic attacks Lior/Lymph Denies easy bleeding and Denies easy bruising Aller/Immun Denies wheezing Physical exam (Primary Care) Vital Signs: Last Vital Signs Temp 97.1 F 09/06/24 14:13 Pulse 98 09/06/24 14:13 BP 106/80 09/06/24 14:13 Pulse Ox 97 09/06/24 14:13 Oxygen Delivery Method Room Air 09/06/24 14:13 BMI result Body Mass Index 22.9 Tobacco/Smoking Status: Tobacco use Status Tobacco use date assessed 09/06/24 09/06/24 14:25 Patient Tobacco Use Status Never used Tobacco 09/06/24 14:25 e-Cigarette/Vaping Use Never Used 09/06/24 14:25 PHQ-9: PHQ-9 Score PHQ-9: Total score 7 09/06/24 14:25 Depression Screening Interpretation: Positive Depression Screening Follow-up: Existing condition and In treatment Thrive Assessment: Date of Thrive Assessment Date Thrive assessed 09/06/24 09/06/24 14:25 Currently or been in a relationship where the following occur: I choose not to answer Const General: healthy appearing, no acute distress, alert and awake Nutritional Appearance: well nourished Orientation/consciousness: oriented to person, oriented to place and oriented to time HENMT Ears: TM's normal bilaterally General nose exam: Normal nasal mucous membranes and turbinates present Eyes Conjunctivae: conjunctivae normal Sclerae: sclerae normal Pupils: Equal, round and reactive pupils present Neck Neck: Yes no lymphadenopathy and Yes no JVD Thyroid: Thyroid normal Carotids: no bruits Resp Effort & Inspection: normal respiratory effort and not tachypneic Auscultation: no crackles, no rales, no rhonchi and no wheezes Cardio Rate: regular rate Rhythm: regular rhythm Heart sounds: no murmurs and normal S1 and S2 GI Palpation (GI): Soft to palpation, nontender, no hepatomegaly and no splenomegaly Auscultation: normal bowel sounds Skin General skin exam: no rashes or lesions noted and dry skin Neuro General: oriented to person, oriented to place and oriented to time Cranial nerves: Yes Equal, round and reactive pupils present Speech: No Abnormal speech present Gait exam (Neuro): Normal gait present Motor exam (neuro): no tremor noted Extrem Right upper extremity: full ROM Left upper extremity: full ROM Right lower extremity: full ROM; no edema Left lower extremity: full ROM; no edema Psych Mental Status: mental status grossly normal Speech and movement: Normal speech and movement present Affect: normal affect Attitude: cooperative Thought process: Normal thought process present Coding Level of Care Code Est Pt Level 4 (09106) Diagnoses Type 2 diabetes mellitus with hyperglycemia, without long-term current use of insulin E11.65 Diabetes mellitus type: type 2 Diabetes mellitus jail insulin use: without long term care pharmacist use Diabetes mellitus complication status: with hyperglycemia Hyperlipidemia LDL goal <100 E78.5 Essential hypertension I10 Additional Codes JAKE-7 Assessment Billing - JAKE-7 Assessment Tool: JAKE-7 Assessment [id number] ([id number]) PHQ-9 - 47958 - PHQ-9 Billing: Yes ([id number]) Assessment & Plan Assessment & Plan (1) Diabetes mellitus: Code(s): E11.9 - Type 2 diabetes mellitus without complications Category: Medical Qualifiers: Diabetes mellitus type: type 2 Diabetes mellitus long term care pharmacist insulin use: without long term care pharmacist use Diabetes mellitus complication status: with hyperglycemia Qualified Code(s): E11.65 - Type 2 diabetes mellitus with hyperglycemia Plan: Patient's type 2 diabetes suboptimally controlled. Unfortunately has not been able to use Trulicity due to fear of needles. Will increase his Actos to 45 mg. Will continue his current dose of metformin . Goal A1c is to be below 7.0 (2) Hyperlipidemia LDL goal <100: Code(s): E78.5 - Hyperlipidemia, unspecified Category: Medical Plan: Patient continues on statin therapy without side effect. Goal LDL to be below 100. (3) Essential hypertension: Code(s): I10 - Essential (primary) hypertension Category: Medical Plan: Patient's blood pressure acceptable today in office. Will continue his current dose of lisinopril with goal blood pressure to be below 140/90
== END 2024-09-06 14:50 | disposition home or self-care (01) ==
LOC: HO.HMCH 13:58
PROVIDERS: PCP Physician Assistant; Visit Provider Physician Assistant
DX: E11.65 Type 2 diabetes mellitus with hyperglycemia (principal); E78.5 Hyperlipidemia, unspecified; I10 Essential (primary) hypertension

== ENCOUNTER → 2024-09-06 13:57 | Outpatient (BNVA) | payer MEDICARE, MEDICAID, SELFPAY | PROVIDERS: PCP Physician Assistant; Visit Provider Physician Assistant | DX: E11.65 Type 2 diabetes mellitus with hyperglycemia (principal); E78.5 Hyperlipidemia, unspecified; I10 Essential (primary) hypertension | CPT/HCPCS: 96127; 99212 ==

== ENCOUNTER 2024-12-10 12:14 | Outpatient (REF) | payer MEDICARE, MEDICAID, SELFPAY ==
[2024-12-10 13:01] LABS: Hematocrit 40.9 % (42.0-52.0); Hemoglobin 14.0 g/dl (14.0-18.0); Mean Corpuscular HGB Conc 34.2 g/dl (31.0-36.0); Mean Corpuscular Hemoglobin 30.2 pg (27.0-33.0); Mean Corpuscular Volume 88.1 fL (80.0-98.0); NRBC Abs Auto 0.000 X10*3/uL (0.0-0.012); NRBC Pct Auto 0.0 /100WBC (0.0-0.2); Platelet Count 203 X10*3/uL (160-400); Red Blood Count 4.64 X10*6/uL (4.60-5.80); White Blood Count 5.6 X10*3/uL (4.8-10.8)
[2024-12-10 13:44] LABS: Alanine Aminotransferase 27 U/L (0-40); Albumin Level 4.6 g/dL (3.5-5.0); Alkaline Phosphatase 61 U/L (39-117); Anion Gap 13 (12-20); Aspartate Amino Transferase 38 U/L (5-37); Blood Urea Nitrogen 19 mg/dL (9-16); Calcium 9.9 mg/dL (8.4-10.2); Carbon Dioxide 29 mmol/L (22-29); Chloride 102 mmol/L (96-108); Cholesterol 164 mg/dL (<200); Estimated Glomerular Filt Rate > 60; HDL Cholesterol 51 mg/dL (>40); Potassium 4.5 mmol/L (3.3-5.1); Sodium 139 mmol/L (135-145); Total Protein 6.8 g/dL (6.5-8.0); Triglycerides 80 mg/dL (<150)
== END 2024-12-10 12:15 | disposition home or self-care (01) ==
LOC: HO.XRAY 12:14
PROVIDERS: PCP Physician Assistant; Visit Provider Physician Assistant
DX: E11.65 Type 2 diabetes mellitus with hyperglycemia (principal); E78.5 Hyperlipidemia, unspecified; Z12.5 Encounter for screening for malignant neoplasm of prostate
CPT/HCPCS: 36415; 80053; 80061; 84153; 85027

== ENCOUNTER 2024-12-13 06:25 | Emergency (ER) | payer MEDICARE, MEDICAID, SELFPAY ==
[2024-12-13 06:31] VITALS: BP 140/89; BP 156/90; PULSE 86; PULSE 93; RESP 18; TEMP 36.7; O2SAT 95; O2SAT 96; BMI 21.8
--- NOTE | 2024-12-13 07:32 | ED.EXTPRO ---
HPI - Extremity Problem General Chief complaint: Extremity Problem Stated complaint: Unbearable L Leg Pain Time Seen by Provider: 12/13/24 06:58 Source: patient and EMS Mode of arrival: EMS Limitations: no limitations History of Present Illness ED Provider: HPI Narrative: 54-year-old male with history of restless leg syndrome, sees neurologist, takes gabapentin fairly low dose twice a day, presenting with left lower extremity pain took gabapentin without relief last night, pain he states is over the leg it is a burning quality there was no trauma there was no back pain, there was no loss of bowel or bladder function, no fevers or chills, no numbness in the groin. Also has history of diabetes. Related Data Home Medications ?Medication ?Instructions ?Recorded ?Confirmed gabapentin 600 mg tablet 2 cap PO BID 01/17/20 09/06/24 zolpidem 10 mg tablet 10 mg PO BEDTIME PRN insomnia 07/10/21 09/06/24 bupropion HCl 100 mg tablet,12 hr 100 mg PO BID 09/06/24 09/06/24 sustained-release buspirone 30 mg tablet 30 mg PO BID 09/06/24 09/06/24 hydroxyzine pamoate 25 mg capsule 25 mg PO BID 09/06/24 09/06/24 Previous Rx's ?Medication ?Instructions ?Recorded blood sugar diagnostic (FreeStyle #150 ea 03/09/21 Lite Strips) lancets 28 gauge (FreeStyle 1 gauge topical BID #100 ea 05/28/23 Lancets) lisinopril 5 mg tablet 5 mg PO DAILY #90 tabs 06/03/24 metformin 1,000 mg tablet 1,000 mg PO BID 90 days #180 tabs 08/16/24 melatonin 5 mg tablet 5 mg PO BEDTIME PRN for insomnia 11/09/24 #90 tabs pioglitazone 30 mg tablet (Actos) 30 mg PO DAILY #90 tabs 11/15/24 atorvastatin 20 mg tablet 20 mg PO DAILY 90 days #90 tabs 11/22/24 Allergies Allergy/AdvReac Type Severity Reaction Status Date / Time Penicillins (PENICILLINS) Allergy Intermediate RASH Verified 12/13/24 06:32 dulaglutide (From Trulicity) AdvReac Intermediate Nausea Verified 12/13/24 06:32 empagliflozin (From AdvReac Intermediate Abdominal Verified 12/13/24 06:32 Jardiance) Pain Review of Systems Constitutional: Constitutional: Reports as per [facility] Past Medical History Medical History PAD (peripheral artery disease) Insomnia Diabetes mellitus History of blood transfusion Liver problem Elevated cholesterol HTN (hypertension) RLS (restless legs syndrome) Upper GI bleed Pyloric channel ulcer Bleeding ulcer Hx of appendicitis Anemia, iron deficiency Chronic headache Depression Hyperlipidemia LDL goal <100 Surgical History Hx of colonoscopy Hx of esophagogastroduodenoscopy History of esophagogastroduodenoscopy (EGD) Hx of cholecystectomy History of appendectomy Family History Family History Father No problems noted. Mother Anxiety associated with depression CVD (cardiovascular disease) Diabetes Mental health disorder Social History Social History Household Members: Family Household Members Other:: parents Housing: Apartment Alcohol intake: current Alcohol intake frequency: does not drink Patient Tobacco Use Status: Never used Tobacco e-Cigarette/Vaping Use: Never Used Second Hand Smoke Exposure: No Advance Directives: No Advance Directives Information Provided: No Do you have a plan to hurt others: No Plan service: No Current occupational status: unemployed Cognitive needs: No Hearing needs: No Vision needs: Yes (Glasses) Physical Exam Vital Signs: Vital Signs: Last Vital Signs Temp 98.1 F 12/13/24 06:31 Pulse 93 12/13/24 06:31 Resp 18 12/13/24 06:31 BP 140/89 H 12/13/24 06:31 Pulse Ox 95 12/13/24 06:31 O2 Del Method Room Air 12/13/24 06:31 BMI result Body Mass Index 21.8 Const: Other: Gen: ?Overall well-appearing patient CV: RRR, no obvious murmurs appreciated Resp: ?No wheezing rales rhonchi no stridor moving air well Abd: ?Bowel sounds are present, no tenderness no rebound no rigidity MSK: Left lower extremity with full range of motion of the hip, knee, ankle distal pulses intact, compartments proximally and distally are soft, no midline back tenderness no step-offs no rashes Skin: Warm, dry, intact, Neuro: ?Alert and oriented x3, moving upper and lower extremities symmetrically, no obvious facial asymmetry noted Medical Decision Making Medical Decision Making MDM Narrative: 7:36 AM 12/13/2024 (Dr. Rock Adams): Considerations during evaluations as below, patient has reassuring physical examination, without any evidence for infectious etiology, anything that this is related to nerve compression specifically such as sciatica versus cauda equina, versus diskitis osteomyelitis he has no risk factors for that is such as recent instrumentation, and injections or IV drug use, there was no indication for further imaging such as CT x-rays of the back or ultrasound of the right lower extremity, compartments are soft, distal pulses are intact, he is only taking small dose of gabapentin and I am going to recommend he follow up with Dr. Lal who is his neurologist. Differential Diagnosis Differential Diagnoses: The differential diagnosis associated with the presentation includes (Diabetic neuropathy, alcoholic neuropathy, restless leg, arterial insufficiency, venous insufficiency, septic joint, trauma) Tests considered The following testing was considered but not selected: CT lumbosacral area, ultrasound left lower extremity Prescription Management I considered prescription management with: Pain Medication Chronic Conditions Patient?s care impacted by: Diabetes Social Determinants Patient?s care significantly limited by Social Determinants of Health including: Problems related to primary support group Discharge Plan Discharge Clinical Impression: Neuralgia of left lower extremity Patient Disposition: Home, Self-Care Additional Instructions: Your physical examination is reassuring, there was no swelling of the leg, there was no trauma to the leg, there was no issues to consider with the veins or arteries of the leg, you likely have diabetic neuropathy, possibly restless leg, possibly other type of neuropathy but nothing I would do differently at this time, continue taking your gabapentin and follow up with your neurologist. You can continue taking gabapentin 600 mg two pills twice daily, I gave you an extra 300 mg of gabapentin, your PCP should be able to manage your gabapentin as well to help with the your symptoms Prescriptions: No Action (DME) FreeStyle Lite Strips Strip See Rx Instructions .ROUTE .MEDSUPPLY Qty: 150 11RF Rx Instructions: once a day metformin 1,000 mg tablet 1,000 mg PO BID 90 Days Qty: 180 1RF melatonin 5 mg tablet 5 mg PO BEDTIME PRN (Reason: for insomnia) Qty: 90 0RF pioglitazone [Actos] 30 mg tablet 30 mg PO DAILY Qty: 90 2RF atorvastatin 20 mg tablet 20 mg PO DAILY 90 Days Qty: 90 1RF gabapentin 600 mg tablet 2 cap PO BID zolpidem 10 mg tablet 10 mg PO BEDTIME PRN (Reason: insomnia) lancets [FreeStyle Lancets] 28 gauge misc 1 gauge topical BID Qty: 100 11RF buspirone 30 mg tablet 30 mg PO BID hydroxyzine pamoate 25 mg capsule 25 mg PO BID bupropion HCl 100 mg tablet sustained-release 12 hr 100 mg PO BID lisinopril 5 mg tablet 5 mg PO DAILY Qty: 90 1RF Referrals: Eddie Malave PA-C [Primary Care Provider, Internal Medicine] Clinical Impression: Neuralgia of left lower extremity Print Language: Montenegrin
[2024-12-13 08:06] VITALS: BP 125/82; PULSE 98; RESP 16; TEMP 36.7; O2SAT 97
[2024-12-13 08:12] VITALS: BP 125/82; PULSE 98; RESP 16; TEMP 36.7; O2SAT 97
== END 2024-12-13 08:13 | disposition home or self-care (01) ==
PROVIDERS: Emergency Provider Emergency Medicine; PCP Physician Assistant
DX: M79.2 Neuralgia and neuritis, unspecified (principal); I10 Essential (primary) hypertension; G25.81 Restless legs syndrome; R51.9 Headache, unspecified; Z79.899 Other long term (current) drug therapy; Z87.19 Personal history of other diseases of the digestive system
CPT/HCPCS: 83036; 99212; 99283; 99284

== ENCOUNTER 2024-12-13 14:26 | Outpatient (AMB) | payer MEDICARE, MEDICAID, SELFPAY ==
--- NOTE | 2024-12-13 14:32 | MHC.PC.OV ---
Vital Signs 12/13/24 14:33 Height 5 ft 6 in Weight 140 lb 2 oz BMI 22.6 BP 120/82 Blood Pressure Location Lt brachial Position Sitting Pulse 115 H Pulse Source Pulse Oximeter Temp 97.3 F Temp Source Temporal Artery Scan Pulse Oximetry (%) 96 Oxygen Delivery Method Room Air Intake Visit Reasons: f/u DMII Intake Note: Patient is here to follow up on DM. Solar Tech Required: No Curtain Supervisor: Not Required per policy Accompanied by: Self / Same As Patient Allergies Penicillins (PENICILLINS) Allergy (Intermediate, Verified 12/13/24 14:43) RASH dulaglutide (From Trulicity) Adverse Reaction (Intermediate, Verified 12/13/24 14:43) Nausea empagliflozin (From Jardiance) Adverse Reaction (Intermediate, Verified 12/13/24 14:43) Abdominal Pain Medication List - Last Reconciled 12/13/24 by Eddie Malave PA-C atorvastatin 20 mg PO DAILY 90 days blood sugar diagnostic (FreeStyle Lite Strips) once a day bupropion HCl SR 100 mg PO BID buspirone 30 mg PO BID gabapentin 2 caps PO BID hydroxyzine pamoate 25 mg PO BID lancets (FreeStyle Lancets) 1 gauge topical BID lisinopril 5 mg PO DAILY melatonin 5 mg PO BEDTIME PRN metformin 1,000 mg PO BID 90 days pioglitazone (Actos) 30 mg PO DAILY zolpidem 10 mg PO BEDTIME PRN Tobacco use date assessed: 12/13/24 Dental Screening Dental Screen Date: 09/06/24 HPI f/u DMII HPI Details Nakul is a 54 y/o male with pmhx. DMII, hyperlipidemia, htn, schizoaffective disorder presenting for follow-up visit. CONCERN--> RLS--> The neuropathic pain in the lower extremities has been severe, prompting a visit to the hospital due to significant discomfort. The patient has tried compression therapy, which was extremely painful and ineffective. He uses gabapentin though is unclear of the actual dose. It appears to be 600 mg daily. He does follow a neurologist here in [place]. ? .. ? DMII:? Patient continues on 1000 mg metformin b.i.d in Actos 30 mg. He has made some dietary changes in blood sugars has been better. TODAY'S A1C IS 7.1 He has just not been able to tolerate using a needle. ? .. ? HTN: Patient reports blood pressures have been stable, no reports of headaches, chest pain. [facility] Medical History PAD (peripheral artery disease) Insomnia Diabetes mellitus History of blood transfusion Liver problem Elevated cholesterol HTN (hypertension) RLS (restless legs syndrome) Upper GI bleed Pyloric channel ulcer Bleeding ulcer Hx of appendicitis Anemia, iron deficiency Chronic headache Depression Hyperlipidemia LDL goal <100 Surgical History Hx of colonoscopy Hx of esophagogastroduodenoscopy History of esophagogastroduodenoscopy (EGD) Hx of cholecystectomy History of appendectomy Family History Father No problems noted. Mother Anxiety associated with depression CVD (cardiovascular disease) Diabetes Mental health disorder Social History Household Members: Family Household Members Other:: parents Housing: Apartment Alcohol intake: current Alcohol intake frequency: does not drink Patient Tobacco Use Status: Never used Tobacco e-Cigarette/Vaping Use: Never Used Second Hand Smoke Exposure: No service: No Current occupational status: unemployed Cognitive needs: No Hearing needs: No Vision needs: Yes (Glasses) Questionnaire Thrive Questionnaire Date Thrive assessed: 09/06/24 I am a: Patient What is your living situation today?: I have a steady place to live Within the past 12 months, did the food you bought not last and you didn't have the money to get more?: Sometimes True Within the past 12 months, did you worry whether your food would run out before you got money to buy more?: Sometimes True Do you have trouble paying for medicines?: No Do you have trouble getting transportation to medical appointments?: No Do you have trouble paying your heating and electricity bill?: No Do you have trouble taking care of your child, family member or friend?: No Do you have trouble with day-to-day activities such as bathing, preparing meals, shopping, managing finances, etc.?: No Are you currently unemployed and looking for a job?: I choose not to answer this question Are you interested in more education?: I choose not to answer this question Please select the resources that you would like help with: None Currently or been in a relationship where the following occur: I choose not to answer THRIVE Score: 2 JAKE-7 AMB Questionnaire JAKE-7 Date JAKE - 7 assessed: 09/06/24 Source: Developed by Drs. Alonso Benites, Misa Ramon, Harvinder Cunningham and colleagues, with an educational anil from [employer]. Review of Systems Const Denies headache(s) Eyes Denies loss of vision ENT Denies vertigo, Denies dizziness, Denies headache(s) and Denies sore throat Card Denies chest pain, Denies leg edema and Denies lightheadedness Resp Denies cough, Denies hemoptysis and Denies wheezing GI Denies abdominal pain, Denies melena, Denies constipation, Denies diarrhea and Denies vomiting Denies dysuria, Denies urinary frequency and Denies urinary urgency Musc Denies arthralgias, Denies joint swelling, Denies numbness and Denies tingling Neuro Denies Abnormal speech present, Denies behavioral changes, Denies vertigo, Denies dizziness, Denies headache(s), Denies loss of vision, Denies memory loss, Denies numbness and Denies tingling Psych Denies anxiety, Denies behavioral changes, Denies depression, Denies memory loss and Denies panic attacks Lior/Lymph Denies easy bleeding and Denies easy bruising Aller/Immun Denies wheezing Physical exam (Primary Care) Vital Signs: Last Vital Signs Temp 97.3 F 12/13/24 14:33 Pulse 115 H 12/13/24 14:33 BP 120/82 12/13/24 14:33 Pulse Ox 96 12/13/24 14:33 Oxygen Delivery Method Room Air 12/13/24 14:33 BMI result Body Mass Index 22.6 Tobacco/Smoking Status: Tobacco use Status Tobacco use date assessed 12/13/24 12/13/24 14:40 Patient Tobacco Use Status Never used Tobacco 12/13/24 14:40 e-Cigarette/Vaping Use Never Used 12/13/24 14:40 Thrive Assessment: Date of Thrive Assessment Date Thrive assessed 09/06/24 12/13/24 14:40 Currently or been in a relationship where the following occur: I choose not to answer Const General: healthy appearing, no acute distress, alert and awake Nutritional Appearance: well nourished Orientation/consciousness: oriented to person, oriented to place and oriented to time HENMT Ears: TM's normal bilaterally General nose exam: Normal nasal mucous membranes and turbinates present Eyes Conjunctivae: conjunctivae normal Sclerae: sclerae normal Pupils: Equal, round and reactive pupils present Neck Neck: Yes no lymphadenopathy and Yes no JVD Thyroid: Thyroid normal Carotids: no bruits Resp Effort & Inspection: normal respiratory effort and not tachypneic Auscultation: no crackles, no rales, no rhonchi and no wheezes Cardio Rate: regular rate Rhythm: regular rhythm Heart sounds: no murmurs and normal S1 and S2 GI Palpation (GI): Soft to palpation, nontender, no hepatomegaly and no splenomegaly Auscultation: normal bowel sounds Skin General skin exam: no rashes or lesions noted and dry skin Neuro General: oriented to person, oriented to place and oriented to time Cranial nerves: Yes Equal, round and reactive pupils present Speech: No Abnormal speech present Gait exam (Neuro): Normal gait present Motor exam (neuro): no tremor noted Extrem Right upper extremity: full ROM Left upper extremity: full ROM Right lower extremity: full ROM; no edema Left lower extremity: full ROM; no edema Psych Mental Status: mental status grossly normal Speech and movement: Normal speech and movement present Affect: normal affect Attitude: cooperative Thought process: Normal thought process present Results AMB Hemoglobin A1c AMB Hemoglobin A1c 7.1 % Last Edit by MC Mckeon on 12/13/24 14:49 Coding Level of Care Code Est Pt Level 4 (49956) Diagnoses Type 2 diabetes mellitus with hyperglycemia, without long-term current use of insulin E11.65 Diabetes mellitus type: type 2 Diabetes mellitus coordinator of genetic services insulin use: without long-term use Diabetes mellitus complication status: with hyperglycemia Hyperlipidemia LDL goal <100 E78.5 Essential hypertension I10 Chronic midline low back pain without sciatica M54.50; G89.29 Chronicity: chronic Back pain laterality: midline Sciatica presence: without sciatica Neuralgia of left lower extremity M79.2 Assessment & Plan Assessment & Plan (1) Diabetes mellitus: Code(s): E11.9 - Type 2 diabetes mellitus without complications Category: Medical Qualifiers: Diabetes mellitus type: type 2 Diabetes mellitus coordinator of genetic services insulin use: without coordinator of genetic services use Diabetes mellitus complication status: with hyperglycemia Qualified Code(s): E11.65 - Type 2 diabetes mellitus with hyperglycemia Plan: Patient's type 2 diabetes is much better controlled, today's A1c is 7.1 from over 9. He has been making better dietary decisions and drinking more water. Will continue his current dose of metformin . Goal A1c is to be below 7.0 (2) Hyperlipidemia LDL goal <100: Code(s): E78.5 - Hyperlipidemia, unspecified Category: Medical Plan: Patient continues on statin therapy without side effect. Goal LDL to be below 100. (3) Essential hypertension: Code(s): I10 - Essential (primary) hypertension Category: Medical Plan: Patient's blood pressure acceptable today in office. Will continue his current dose of lisinopril with goal blood pressure to be below 140/90 (4) Low back pain: Code(s): M54.50 - Low back pain, unspecified Category: Medical Qualifiers: Chronicity: chronic Back pain laterality: midline Sciatica presence: without sciatica Qualified Code(s): M54.50 - Low back pain, unspecified; G89.29 - Other chronic pain Plan: Will get low back x-ray to evaluate for any arthritic concerns that could be contributing to his lower extremity pain. (5) Neuralgia of left lower extremity: Code(s): M79.2 - Neuralgia and neuritis, unspecified Category: Medical Plan: The patient experiences severe neuropathic pain in the lower extremities, which has been managed with gabapentin. An EMG is planned to evaluate the type of neuropathy, and an x-ray of the back is ordered to assess for any underlying issues contributing to the pain. Orders: Orders NE electromyogram (EMG) Today M79.2 - Neuralgia and neuritis, unspecified AMB Hemoglobin A1c Today E11.65 - Type 2 diabetes mellitus with hyperglycemia, Z13.9 - Encounter for screening, unspecified XR lumbar spine 4V min Today M54.50 - Low back pain, unspecified Medications: New pyridoxine (vitamin B6) (Vitamin B-6) 50 mg PO DAILY 90 tabs 1RF 90 days M79.2 - Neuralgia and neuritis, unspecified
[2024-12-13 14:33] VITALS: BP 120/82; PULSE 115; TEMP 36.3; O2SAT 96; BMI 22.6
== END 2024-12-13 15:00 | disposition home or self-care (01) ==
LOC: HO.HMCH 14:27
PROVIDERS: PCP Physician Assistant; Visit Provider Physician Assistant
DX: E11.65 Type 2 diabetes mellitus with hyperglycemia (principal); E78.5 Hyperlipidemia, unspecified; I10 Essential (primary) hypertension; M54.50 Low back pain, unspecified; G89.29 Other chronic pain; M79.2 Neuralgia and neuritis, unspecified; Z13.9 Encounter for screening, unspecified

== ENCOUNTER 2025-01-05 12:33 | Outpatient (REF) | payer MEDICARE, MEDICAID, SELFPAY ==
--- NOTE | 2025-01-05 12:55 | EMG_ITS ---
Chief complaint: Bilateral pain in lower extremities Reason for referral: Neuralgia and neuritis, unspecified, evaluate for sensory neuropathy Referred by:?Eddie Malave PA-C Procedure done: Bilateral lower extremities NCS/EMG Description: Bilateral tibial and peroneal motor studies were performed with F responses and tibial H reflexes. Bilateral superficial peroneal and sural sensory studies were performed an EMG needle examination is performed. Right peroneal motor amplitude is moderately reduced with conduction velocities in high 30s. Right peroneal distal latency and amplitude is normal with conduction velocities in high 30s. Tibial responses are falling in normal range. Right superficial peroneal is absent and left revealed decreased amplitude and borderline conduction velocities. Sural responses also revealed bilateral significant reduction of amplitude. F-waves were normal while H reflexes were absent. 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
== END 2025-01-05 12:34 | disposition home or self-care (01) ==
LOC: HO.NEURO 12:33
PROVIDERS: PCP Physician Assistant; Visit Provider Physician Assistant
DX: G57.93 Unspecified mononeuropathy of bilateral lower limbs (principal)
CPT/HCPCS: 95886; 95911

== ENCOUNTER → 2025-01-05 12:55 | Outpatient (BNV) | payer MEDICARE, MEDICAID, SELFPAY | PROVIDERS: PCP Physician Assistant; Visit Provider Psychiatry & Neurology Neurology | DX: G62.89 Other specified polyneuropathies (principal) | CPT/HCPCS: 95886; 95911 ==

== ENCOUNTER 2025-01-11 09:36 | Outpatient (AMB) | payer MEDICARE, MEDICAID, SELFPAY ==
--- NOTE | 2025-01-11 09:46 | A.OFFVIS_ITS ---
Intake Visit Reasons: RLS Allergies Penicillins (PENICILLINS) Allergy (Intermediate, Verified 01/11/25 09:50) RASH dulaglutide (From Trulicity) Adverse Reaction (Intermediate, Verified 01/11/25 09:50) Nausea empagliflozin (From Jardiance) Adverse Reaction (Intermediate, Verified 01/11/25 09:50) Abdominal Pain Medication List - Last Reconciled 01/11/25 by Kellie Cristina, JOSE L atorvastatin 20 mg PO DAILY 90 days blood sugar diagnostic (FreeStyle Lite Strips) once a day bupropion HCl SR 100 mg PO BID buspirone 30 mg PO BID gabapentin 600 mg PO BEDTIME hydroxyzine pamoate 25 mg PO BID lancets (FreeStyle Lancets) 1 gauge topical BID lisinopril 5 mg PO DAILY melatonin 5 mg PO BEDTIME PRN metformin 1,000 mg PO BID 90 days pioglitazone (Actos) 30 mg PO DAILY pyridoxine (vitamin B6) (Vitamin B-6) 50 mg PO DAILY 90 days zolpidem 10 mg PO BEDTIME PRN HPI Comments Details: 54-year-old man with history of alcohol abuse, diabetes, anxiety, depression, MCI, tremor, and restless leg syndrome. He was having pain in legs for the last few months. He had trouble describing the pain. He had some numbness and tingling in both legs up to knees. Balance was not so good and he has had few minor falls, last around 08/2024. RLS symptoms were okay and sleep was okay. Tremor was stable, no functional impairment. No difficulty eating or drinking. Mood was anxious.?He was working with therapist and psychiatrist. [facility] Medical History PAD (peripheral artery disease) Insomnia Diabetes mellitus History of blood transfusion Liver problem Elevated cholesterol HTN (hypertension) RLS (restless legs syndrome) Upper GI bleed Pyloric channel ulcer Bleeding ulcer Hx of appendicitis Anemia, iron deficiency Chronic headache Depression Hyperlipidemia LDL goal <100 Surgical History Hx of colonoscopy Hx of esophagogastroduodenoscopy History of esophagogastroduodenoscopy (EGD) Hx of cholecystectomy History of appendectomy Family History Father No problems noted. Mother Anxiety associated with depression CVD (cardiovascular disease) Diabetes Mental health disorder Social History Household Members: Family Household Members Other:: parents Housing: Apartment Alcohol intake: current Alcohol intake frequency: does not drink Patient Tobacco Use Status: Never used Tobacco e-Cigarette/Vaping Use: Never Used Second Hand Smoke Exposure: No service: No Current occupational status: unemployed Cognitive needs: No Hearing needs: No Vision needs: Yes (Glasses) Review of Systems Const Denies chills, Denies daytime sleepiness, Denies difficulty sleeping, Denies fatigue, Denies fever(s), Denies frequent falls, Denies headache(s), Denies increased appetite, Denies poor appetite, Denies snoring, Denies weakness, Denies weight gain and Denies weight loss Eyes Denies loss of vision ENT Denies vertigo, Denies dizziness and Denies headache(s) Card Denies chest pain at rest, Denies chest pain with activity, Denies syncope, Denies leg edema and Denies palpitations Resp Denies snoring GI Denies constipation, Denies heartburn, Denies diarrhea and Denies nausea Denies urinary frequency, Denies urinary incontinence and Denies urinary urgency Musc Denies abnormal gait, Denies numbness and Denies tingling Skin/Breast Denies dry skin and Denies rash Neuro Denies abnormal gait, Denies vertigo, Denies dizziness, Denies syncope, Denies frequent falls, Denies headache(s), Denies lack of coordination, Denies loss of vision, Reports memory loss, Denies numbness, Reports restless legs, Denies seizure-like activity, Denies tingling, Denies paresthesias, Reports tremor(s) and Denies weakness Psych Denies anxiety, Denies depression, Denies auditory hallucinations, Reports memory loss, Denies visual hallucinations and Denies suicidal ideation Endo Denies fatigue and Denies palpitations Physical Exam Const Other: General Appearance:? normal, in no acute distress. Skin:? no rashes, no significant birthmarks. Heart:? S1, S2 normal, no murmurs. Lungs:? clear anteriorly and posteriorly. Extremities:? no edema. Psych:? alert, oriented, cognitive function intact, cooperative with exam. Neuro Other: Mental Status:?Normal attention, orientation, memory and affect.? Cranial Nerves:?Pupils are equal, round and reactive to light. External occular muscles are intact. Visual pablo are full. Face is symmetrical. Facial sensations are normal. Tongue is midline. Palate elevates symmetrically. Shoulder shrugging is normal. Hearing to bedside conversation is normal. Sensory Exam:?....? Coordination:?No ataxia,?no titubation.? Gait Exam: Within normal limits. Extrapyramidal System:?No tremor, rigidity with normal facial expressions.? Pronator Drift:?Not present.? Involuntary Movements:?Fine tremors of the outstretched hands seen. Mild dyskinesia movements of mouth. Speech:?Normal.? Results Reviewed Results Reviewed: [address] [address] EMG / Nerve Conduction Report Signed Patient: Nakul Reyes MR#: [id number] : 1970 Acct:[id number] Age/Sex: 54 / M ADM Date: 01/05/25 Loc: .NEURO Attending Dr: Eddie Malave PA-C Ordering Physician: Eddie Malave PA-C Date of Service: 01/05/25 Procedure(s): NE electromyogram (EMG); NE nerve conduction velocity Accession Number(s): [id number]; [id number] cc: Eddie Malave PA-C~ Reason for Exam: M79.2 - Neuralgia and neuritis, unspecified Chief complaint: Bilateral pain in lower extremities Reason for referral: Neuralgia and neuritis, unspecified, evaluate for sensory neuropathy Referred by:?Eddie Malave PA-C Procedure done: Bilateral lower extremities NCS/EMG Description: Bilateral tibial and peroneal motor studies were performed with F responses and tibial H reflexes. Bilateral superficial peroneal and sural sensory studies were performed an EMG needle examination is performed. Right peroneal motor amplitude is moderately reduced with conduction velocities in high 30s. Right peroneal distal latency and amplitude is normal with conduction velocities in high 30s. Tibial responses are falling in normal range. Right superficial peroneal is absent and left revealed decreased amplitude and borderline conduction velocities. Sural responses also revealed bilateral significant reduction of amplitude. F-waves were normal while H reflexes were absent. 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 Dictated By: Nicole Lal MD Signed By: <Electronically signed by Nicole Lal MD> 01/05/25 1528 Laboratory Tests 12/10/24 12/13/24 12:30 14:31 WBC 5.6 RBC 4.64 Hgb 14.0 Hct 40.9 L MCV 88.1 MCH 30.2 MCHC 34.2 RDW 12.6 Plt Count 203 MPV 10.6 Sodium 139 Potassium 4.5 Chloride 102 Carbon Dioxide 29 Anion Gap 13 BUN 19 H Creatinine 1.18 Estimated GFR > 60 Fasting Glucose 213 H Hgb A1c (Clinic) 7.1 H Calcium 9.9 Total Bilirubin 0.3 AST 38 H ALT 27 Alkaline Phosphatase 61 Total Protein 6.8 Albumin 4.6 Triglycerides 80 Cholesterol 164 LDL Cholesterol, Calc 97 HDL Cholesterol 51 Laboratory Tests 06/03/24 11:05 Hgb A1c (Clinic) 9.2 H Assessment & Plan Assessment & Plan (1) RLS (restless legs syndrome): Code(s): G25.81 - Restless legs syndrome Category: Medical Plan: Increase gabapentin 600mg 1 tablet twice a day (to also help with peripheral neuropathy symptoms). (2) Peripheral neuropathy: Code(s): G62.9 - Polyneuropathy, unspecified Category: Medical Qualifiers: Peripheral neuropathy type: polyneuropathy, unspecified Qualified Code(s): G62.9 - Polyneuropathy, unspecified Plan: EMG/NCV results reviewed. Lab results reviewed, A1c down to 7.1 from 9.2. He was educated on this condition and its treatment. Increase gabapentin 600mg 1 tablet twice a day, use/side effects reviewed. Stay physically active, control blood sugar. (3) MCI (mild cognitive impairment): Code(s): G31.84 - Mild cognitive impairment of uncertain or unknown etiology Category: Medical (4) Tremor: Code(s): R25.1 - Tremor, unspecified Category: Medical Plan . Medications: New gabapentin 600 mg PO BID 60 tabs 2RF 30 days Coding Level of Care Code Est Pt Level 4 (33933) Diagnoses RLS (restless legs syndrome) G25.81 Peripheral polyneuropathy G62.9 Peripheral neuropathy type: polyneuropathy, unspecified MCI (mild cognitive impairment) G31.84 Tremor R25.1
== END 2025-01-11 10:10 | disposition home or self-care (01) ==
LOC: HO.HSM 09:37
PROVIDERS: PCP Physician Assistant; Visit Provider Registered Nurse
DX: G25.81 Restless legs syndrome (principal); G62.9 Polyneuropathy, unspecified; G31.84 Mild cognitive impairment of uncertain or unknown etiology; R25.1 Tremor, unspecified
CPT/HCPCS: 99214

== ENCOUNTER → 2025-01-11 09:36 | Outpatient (BNVA) | payer MEDICARE, MEDICAID, SELFPAY | PROVIDERS: PCP Physician Assistant; Visit Provider Registered Nurse | DX: R25.1 Tremor, unspecified (principal); E11.40 Type 2 diabetes mellitus with diabetic neuropathy, unspecified; G31.84 Mild cognitive impairment of uncertain or unknown etiology; Z79.84 Long term (current) use of oral hypoglycemic drugs | CPT/HCPCS: 99212 ==

== ENCOUNTER 2025-02-18 13:36 | Outpatient (REF) | payer MEDICARE, MEDICAID, SELFPAY ==
--- NOTE | ~2025-02-18 | XR_ITS ---
EXAMINATION: XR LUMBOSACRAL SPINE CLINICAL INFORMATION: M54.50 - Low back pain, unspecified COMPARISON: Correlated to CT abdomen pelvis dated June 07, 2013 TECHNIQUE: AP oblique and lateral views FINDINGS: Levoconvex curvature of the lumbar spine apex at L3. Superior endplate compression deformity representing 20% volume loss at T12. Mild endplate deformity, 10%, at L2. Facet joint hypertrophy at L5-S1. No acute cortical disruption or malalignment. No lytic or blastic lesions. XR/XR lumbar spine 4V min IMPRESSION: Levoconvex scoliosis and mild multilevel thoracolumbar spondylosis. Old compression deformity, T12. EXAMINATION: XR SHOULDER, LEFT CLINICAL INFORMATION: M77.8. Other enthesopathies. COMPARISON: Correlated to chest x-ray dated June 07, 2013. TECHNIQUE: AP external rotation, Grashey, scapular Y, and axillary views of the left shoulder. FINDINGS: No acute cortical disruption or malalignment. No lytic or blastic lesions. No metallic or radiopaque foreign body. No subcutaneous emphysema. No gross soft tissue calcifications. IMPRESSION: No acute fracture or dislocation. No gross degenerative changes. Electronically signed by: Navi Austin MD 02/18/2025 02:47 PM EST
--- NOTE | ~2025-02-18 | XR_ITS ---
EXAMINATION: XR LUMBOSACRAL SPINE CLINICAL INFORMATION: M54.50 - Low back pain, unspecified COMPARISON: Correlated to CT abdomen pelvis dated June 07, 2013 TECHNIQUE: AP oblique and lateral views FINDINGS: Levoconvex curvature of the lumbar spine apex at L3. Superior endplate compression deformity representing 20% volume loss at T12. Mild endplate deformity, 10%, at L2. Facet joint hypertrophy at L5-S1. No acute cortical disruption or malalignment. No lytic or blastic lesions. XR/XR shoulder LT min 2V IMPRESSION: Levoconvex scoliosis and mild multilevel thoracolumbar spondylosis. Old compression deformity, T12. EXAMINATION: XR SHOULDER, LEFT CLINICAL INFORMATION: M77.8. Other enthesopathies. COMPARISON: Correlated to chest x-ray dated June 07, 2013. TECHNIQUE: AP external rotation, Grashey, scapular Y, and axillary views of the left shoulder. FINDINGS: No acute cortical disruption or malalignment. No lytic or blastic lesions. No metallic or radiopaque foreign body. No subcutaneous emphysema. No gross soft tissue calcifications. IMPRESSION: No acute fracture or dislocation. No gross degenerative changes. Electronically signed by: Navi Austin MD 02/18/2025 02:47 PM EST
== END 2025-02-18 13:37 | disposition home or self-care (01) ==
LOC: HO.XRAY 13:36
PROVIDERS: PCP Physician Assistant; Visit Provider Physician Assistant
DX: G89.29 Other chronic pain (principal); M54.50 Low back pain, unspecified; M77.8 Other enthesopathies, not elsewhere classified; E11.42 Type 2 diabetes mellitus with diabetic polyneuropathy; E11.51 Type 2 diabetes mellitus with diabetic peripheral angiopathy without gangrene; G57.93 Unspecified mononeuropathy of bilateral lower limbs; R26.89 Other abnormalities of gait and mobility
CPT/HCPCS: 72110; 73030; 99202

== ENCOUNTER 2025-02-18 13:36 | Outpatient (AMB) | payer MEDICARE, MEDICAID, SELFPAY ==
--- NOTE | 2025-02-18 13:39 | A.OFFVIS_ITS ---
Vital Signs 3 02/18/25 13:42 Height 5 ft 6 in Weight 140 lb 8 oz BMI 22.7 BP 129/80 Blood Pressure Location Rt brachial Position Sitting Pulse 107 H Pulse Source Pulse Oximeter Pulse Oximetry (%) 98 Oxygen Delivery Method Room Air Intake Visit Reasons: Unspecified mononeuropathy of bilateral lower limb Intake Note: Pain today 11/07 Equipment Engineering Technician Required: No Accompanied by: Self / Same As Patient Allergies Penicillins (PENICILLINS) Allergy (Intermediate, Verified 02/18/25 13:42) RASH dulaglutide (From Trulicity) Adverse Reaction (Intermediate, Verified 02/18/25 13:42) Nausea empagliflozin (From Jardiance) Adverse Reaction (Intermediate, Verified 02/18/25 13:42) Abdominal Pain HPI Comments Details: The patient is a 54 year old male presenting for evaluation of chronic leg and foot pain, with a referral from the patient's PCP for neuropathy. The patient has a history of neuropathy for years, with pain extending up to the knees, as well as tingling in the hands. The pain is described as constant, with qualities of driving, pounding, stabbing, sharp, burning, tingling, cramping, soreness, heaviness, and tightness with cold sensations. The pain affects daily activities and causes fatigue. The patient has a history of diabetes mellitus, and A1c levels have recently improved to 7.1 as of November, down from a previous level above 9. An EMG study from December confirmed mild to moderate axonal, patchy sensory-motor peripheral neuropathy. The patient also has a history of peripheral artery disease, h/o alcohol abuse, schizoaffective disorder, depression, anxiety, mild cognitive decline, and restless leg syndrome. The patient follows with Neurology, therapies, and a psychiatrist. The patient has a history of alcohol abuse but has completed rehab and denies current alcohol intake. Current medications include gabapentin 600 mg, which provides partial relief; the patient has been taking it once daily, although he states it was prescribed for twice daily use in the past. Past treatments include [id number] diabetic cream, which provided minimal relief. The patient is unemployed, on permanent disability, lives with his brother, and uses a pillbox for medications. - Location: Chronic pain in legs and feet, as well as diffuse body pain. - Quality: The pain is described as constant, driving, pounding, stabbing, sharp, burning, tingling, cramping, sore, heavy, and hurting with tight and cold sensations. - Severity: Current pain level is rated at 5 out of 10. - Associated symptoms: Pain causes fatigue, and the patient's legs feel tired and may give out after walking. - Interference with function: Pain affects daily activities and functioning. - Analgesia: The patient reports partial pain relief with gabapentin 600 mg once daily, though it was prescribed for twice daily use. - Analgesia: The current pain level is 5/10. - Activities of Daily Living: The patient is on permanent disability and reports that pain affects daily functioning. - The patient reports that legs feel tired after walking and may give out. - Affect: The patient has a history of depression and anxiety. - Aberrant Behaviors: The patient has a history of alcohol abuse but reports current sobriety after completing rehabilitation. [facility] Medical History PAD (peripheral artery disease) Insomnia Diabetes mellitus History of blood transfusion Liver problem Elevated cholesterol HTN (hypertension) RLS (restless legs syndrome) Upper GI bleed Pyloric channel ulcer Bleeding ulcer Hx of appendicitis Anemia, iron deficiency Chronic headache Depression Hyperlipidemia LDL goal <100 Surgical History Hx of colonoscopy Hx of esophagogastroduodenoscopy History of esophagogastroduodenoscopy (EGD) Hx of cholecystectomy History of appendectomy Family History Father No problems noted. Mother Anxiety associated with depression CVD (cardiovascular disease) Diabetes Mental health disorder Social History Household Members: Family Household Members Other:: parents Housing: Apartment Alcohol intake: current Alcohol intake frequency: does not drink Patient Tobacco Use Status: Never used Tobacco e-Cigarette/Vaping Use: Never Used Second Hand Smoke Exposure: No service: No Current occupational status: unemployed Cognitive needs: No Hearing needs: No Vision needs: Yes (Glasses) Review of Systems Const Details: - General: Reports chronic fatigue and pain. - Neurological: Reports chronic pain in legs and feet, tremors, burning and tingling in hands and feet, numbness in feet up to the knees, restless leg syndrome, and occasional loss of balance. - Musculoskeletal: Reports diffuse body pain and occasional back pain. - Cognitive: Reports being forgetful at times. Sees Neurology for tremors. - Integumentary: Reports slow wound healing, healing blister right 2nd toe. - Constitutional: Denies sleep issues. All systems reviewed & are unremarkable except as noted in HPI and below Physical Exam General: Appears afebrile. Alert and oriented. Mood and affect appropriate. Forgetful at times. Follows and participates in conversation appropriately. Respiratory effort is unlabored. No cough. Able to transition from sit to stand unassisted. Ambulates with bilaterally normal heel strike and toe off. General: Yes no CVA tenderness Back/Spine/Pelvis Back: no CVA tenderness Cervical Spine: cervical ROM normal, No Cervical spine scars present and No Cervical spine tenderness Thoracic/Lumbar Spine: thoracic and lumbar spine normal to inspection, No Thoracic/lumbar spine scar(s), Lasegue's sign negative, straight leg raise negative bilaterally, pain with thoraco-lumbar ROM, thoraco-lumbar ROM limited, No thoracic spinal tenderness and No lumbar spinal tenderness Skin General skin exam: no rashes or lesions noted, no ecchymosis, no erythema and spider nevi (multiple varicosities BLE with chronic vascular discolorations in legs/feet) Trauma: abrasion (healing abrasion right 2nd toe) Extrem Other: There is a decreased sensation over the soles of both feet and toes. Reports numbness, burning, tingling and bilateral foot pain, worse at night time. Reports heaviness and leg pain with prolonged walking. Healing small blister noted to the right 2nd toe, otherwise skin is intact. No soft tissue swelling or warmth. +2 pedal pulses bilaterally. General: Yes capillary refill normal, Yes no clubbing, cyanosis or edema and Yes no calf tenderness Psych Appearance: grossly normal Mental Status: mental status grossly normal Speech and movement: Normal speech and movement present Affect: normal affect and Sad affect present Attitude: cooperative Thought process: Normal thought process present and Circumstantial thought process present Thought content: Normal thought content present, suicidality (none), no hallucinations and Depressive thoughts present Insight: Fair insight present (Psych) Judgement: Fair judgement present (Psych) Results Reviewed Results Reviewed: NE electromyogram (EMG); NE nerve conduction velocity 01/05/25 Chief complaint: Bilateral pain in lower extremities Reason for referral: Neuralgia and neuritis, unspecified, evaluate for sensory neuropathy Description: Bilateral tibial and peroneal motor studies were performed with F responses and tibial H reflexes. Bilateral superficial peroneal and sural sensory studies were performed an EMG needle examination is performed. Right peroneal motor amplitude is moderately reduced with conduction velocities in high 30s. Right peroneal distal latency and amplitude is normal with conduction velocities in high 30s. Tibial responses are falling in normal range. Right superficial peroneal is absent and left revealed decreased amplitude and borderline conduction velocities. Sural responses also revealed bilateral significant reduction of amplitude. F-waves were normal while H reflexes were absent. 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 Assessment & Plan Assessment & Plan (1) PAD (peripheral artery disease): Code(s): I73.9 - Peripheral vascular disease, unspecified Category: Medical (2) Neuropathy involving both lower extremities: Code(s): G57.93 - Unspecified mononeuropathy of bilateral lower limbs Category: Medical (3) Low back pain: Code(s): M54.50 - Low back pain, unspecified Category: Medical Qualifiers: Chronicity: chronic Back pain laterality: midline Sciatica presence: w ithout sciatica Qualified Code(s): M54.50 - Low back pain, unspecified; G89.29 - Other chronic pain (4) Loss of balance: Code(s): R26.89 - Other abnormalities of gait and mobility Category: Medical (5) Diabetic peripheral neuropathy: Code(s): E11.42 - Type 2 diabetes mellitus with diabetic polyneuropathy Category: Medical Plan For management of peripheral neuropathy, prior authorization will be requested for Qutenza (topical capsaicin 8%) treatment for the feet. The patient was informed that this is an in-office procedure performed every three months, and that the blister on the toe must heal prior to application. If approved, a prescription for Emla cream will be sent for the patient to apply at home prior to the procedure. Due to findings of varicosities and concern for peripheral artery disease, a referral will be placed for the patient to be evaluated by a Vascular specialist, Dr. Pineda. To further evaluate the patient's unsteadiness and occasional back pain, the patient was instructed to complete the pending back x-ray that was previously ordered by the PCP. A referral for physical therapy placed for chronic low back pain with occasional loss of balance. The patient will continue taking gabapentin for neuropathic pain. The office will contact the patient once prior authorization for Luci is obtained and will also follow up with the patient regarding the x-ray results. All questions and concerns have been answered and patient agreed with the treatment plan. Patient was informed and verbally consented to the use of an ambient scribe for clinic note documentation during this visit. Orders: Orders 2 PT Evaluation and Treatment Today G89.29 - Other chronic pain, M54.50 - Low back pain, unspecified, R26.89 - Other abnormalities of gait and mobility Referrals 2 Vascular Surgery Referral I73.9 - Peripheral vascular disease, unspecified Coding Level of Care Code New Pt Level 4 (52583) Diagnoses PAD (peripheral artery disease) I73.9 Neuropathy involving both lower extremities G57.93 Chronic midline low back pain without sciatica M54.50; G89.29 Chronicity: chronic Back pain laterality: midline Sciatica presence: without sciatica Loss of balance R26.89 Diabetic peripheral neuropathy E11.42
[2025-02-18 13:42] VITALS: BP 129/80; PULSE 107; O2SAT 98; BMI 22.7
== END 2025-02-18 14:14 | disposition home or self-care (01) ==
LOC: HO.PMC 13:37
PROVIDERS: PCP Physician Assistant; Visit Provider Nurse Practitioner Family
DX: I73.9 Peripheral vascular disease, unspecified (principal); G57.93 Unspecified mononeuropathy of bilateral lower limbs; M54.50 Low back pain, unspecified; G89.29 Other chronic pain; R26.89 Other abnormalities of gait and mobility; E11.42 Type 2 diabetes mellitus with diabetic polyneuropathy
CPT/HCPCS: 99204

== ENCOUNTER → 2025-02-18 14:12 | Outpatient (BNV) | payer MEDICARE, MEDICAID, SELFPAY | PROVIDERS: PCP Physician Assistant; Visit Provider Radiology Diagnostic Radiology | DX: M47.815 Spondylosis without myelopathy or radiculopathy, thoracolumbar region (principal); M41.35 Thoracogenic scoliosis, thoracolumbar region; M77.8 Other enthesopathies, not elsewhere classified | CPT/HCPCS: 72110; 73030 ==

== ENCOUNTER 2025-03-30 09:45 | Outpatient (AMB) | payer MEDICARE, MEDICAID, SELFPAY ==
--- NOTE | 2025-03-30 09:46 | A.OFFVIS_ITS ---
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 He reports bilateral leg symptoms including pain, cramping, and restless legs, which are equal in both legs. He notes discomfort and pain in his legs with walking, which begins after approximately one block. The discomfort starts in the soles of his feet and he describes the sensation as nerve pain with tingling. He has a history of diabetes, diagnosed around 2009. He reports he has never smoked cigarettes. He denies any prior injuries or accidents involving his legs. He now presents for vascular evaluation [facility] Medical History PAD (peripheral artery disease) Insomnia Diabetes mellitus History of blood transfusion Liver problem Elevated cholesterol HTN (hypertension) RLS (restless legs syndrome) Upper GI bleed Pyloric channel ulcer Bleeding ulcer Hx of appendicitis Anemia, iron deficiency Chronic headache Depression Hyperlipidemia LDL goal <100 Surgical History Hx of colonoscopy Hx of esophagogastroduodenoscopy History of esophagogastroduodenoscopy (EGD) Hx of cholecystectomy History of appendectomy Family History Father No problems noted. Mother Anxiety associated with depression CVD (cardiovascular disease) Diabetes Mental health disorder Social History Household Members: Family Household Members Other:: parents Housing: Apartment Alcohol intake: current Alcohol intake frequency: does not drink Patient Tobacco Use Status: Never used Tobacco e-Cigarette/Vaping Use: Never Used Second Hand Smoke Exposure: No service: No Current occupational status: unemployed Cognitive needs: No Hearing needs: No Vision needs: Yes (Glasses) Review of Systems Const All systems reviewed & are unremarkable except as noted in HPI and below Reports no additional complaints ENT Reports Normal hearing present Card Denies chest pain, Denies chest pain at rest, Denies chest pain with activity and Denies pedal edema Resp Denies cough GI Denies abdominal pain Musc Denies abnormal gait, Denies muscle cramps and Denies radiating pain into limb Skin/Breast Denies skin ulcer and Denies wounds Neuro Reports Normal hearing present and Denies abnormal gait Psych Reports no additional complaints Physical Exam Vital Signs: BMI result Body Mass Index 22.6 Const General: cooperative, healthy appearing and comfortable Orientation/consciousness: oriented to person, oriented to place and oriented to time HEENT Head: Yes normal to inspection Neck Neck: Yes normal visual inspection Carotids: no bruits Chest Chest palpation & inspection: normal inspection of the chest Resp Effort & Inspection: normal respiratory effort and able to speak in complete sentences Auscultation: clear to auscultation bilaterally, no crackles, no rales, no rhonchi and no wheezes Cardio Other: Bilateral DP signals Rate: regular rate Rhythm: regular rhythm Heart sounds: S1 normal heart sound present and S2 normal heart sound present Bruits: no carotid bruits GI Inspection: Yes normal to inspection Skin Wounds: no wounds Hair: normal Neuro General: oriented to person, oriented to place and oriented to time Cranial nerves: Yes CN's II-XII intact bilaterally and Yes Normal hearing present Cognition (Neuro): normal cognition Motor exam (neuro): 5/5 motor strength present throughout Extrem Other: venous exam: No significant superficial varicosities or spider telangiectasias, minimal edema General: No clubbing, No cyanosis and No edema Psych Appearance: grossly normal Mental Status: mental status grossly normal Speech and movement: Normal speech and movement present Assessment & Plan Assessment & Plan (1) PAD (peripheral artery disease): Code(s): I73.9 - Peripheral vascular disease, unspecified Category: Medical Plan: I discussed with the patient that multiple factors, including arteries, veins, and nerves, can cause leg pain. I explained that his pulses feel weak, which raises concern for poor blood flow and potential arterial blockages, especially given his long history of diabetes. I also mentioned that diabetic neuropathy could be a component of his symptoms. I informed him that I will order a leg ultrasound to evaluate his circulation, and the hospital will call him to schedule the test. We will have him return for a follow-up visit to review the results. I encouraged him to continue walking as tolerated, being careful of weather conditions. He will follow up with us after arterial testing. Thank you for allowing us to assist in his care. If there are any questions or concerns please do not hesitate to contact us. Orders: Orders US arterial duplex LE BI Today I73.9 - Peripheral vascular disease, unspecified Coding Level of Care Code New Pt Level 4 (79804) Diagnoses PAD (peripheral artery disease) I73.9
[2025-03-30 09:48] VITALS: BMI 22.6
== END 2025-03-30 10:25 | disposition home or self-care (01) ==
LOC: HO.HVS 09:45
PROVIDERS: PCP Physician Assistant; Visit Provider Surgery Vascular Surgery
DX: I73.9 Peripheral vascular disease, unspecified (principal)
CPT/HCPCS: 99204

== ENCOUNTER → 2025-03-30 09:45 | Outpatient (BNVA) | payer MEDICARE, MEDICAID, SELFPAY | PROVIDERS: PCP Physician Assistant; Visit Provider Surgery Vascular Surgery | DX: I73.9 Peripheral vascular disease, unspecified (principal); E11.9 Type 2 diabetes mellitus without complications; Z79.84 Long term (current) use of oral hypoglycemic drugs; G25.81 Restless legs syndrome | CPT/HCPCS: 99202 ==